=== PATIENT | female | born 1975 | race Caucasian/White ===

== ENCOUNTER 2017-10-08 08:17 | Day surgery (SDC) | END 2017-10-08 15:15 | disposition home or self-care (01) ==

== ENCOUNTER 2018-02-27 16:04 | Observation (INO) | END 2018-02-28 15:30 | disposition home or self-care (01) ==

== ENCOUNTER 2018-04-16 07:19 | Inpatient (IN) | END 2018-04-19 15:45 | disposition home or self-care (01) | DRG 627 ==

== ENCOUNTER 2018-06-13 12:40 | Emergency (ER) | END 2018-06-13 17:43 | disposition home or self-care (01) ==

== ENCOUNTER 2018-06-18 10:23 | Inpatient (IN) | END 2018-06-19 17:15 | disposition home or self-care (01) | DRG 577 ==

== ENCOUNTER 2018-08-31 11:13 | Inpatient (IN) | payer OTHER ==
[2018-08-28 16:28] VITALS: BMI 20.8
[2018-08-31] VITALS (31 sets, daily range): BP systolic 97–138; BP diastolic 53–93; PULSE 59–91; RESP 10–18; Ht 172.7 cm; Wt 62.5 kg
[~2018-08-31] VITALS: Ht 172.7 cm; Wt 62.5 kg
[~2018-08-31 11:13] MED LIST: LEVO175T6 PO; LIOT25TA3 PO
[2018-08-31] MEDS ORDERED: SOD CHLORIDE 0.9% 1,000 ML IV ONE (11:30)
[2018-08-31] MEDS ORDERED: CEFAZOLIN 2 GM/50 ML (PMX) 50 ML IVPB ONE (11:30)
[2018-08-31] MEDS ORDERED: LEVO150T64 PO (11:48)
[2018-08-31] MEDS ORDERED: PROPOFOL 20 ML ONE (12:50)
[2018-08-31] MEDS ORDERED: CEFAZOLIN 1 GM INJ ONE (12:50)
[2018-08-31] MEDS ORDERED: MIDAZOLAM 1 MG/ML 2 ML INJ ONE (12:50)
[2018-08-31] MEDS ORDERED: LIDOCAINE 2% (SDV) 5 ML INJ ONE (12:50)
[2018-08-31] MEDS ORDERED: FENTAnyl 50 MCG/ML VIAL ONE ×2 (12:50→14:05)
--- NOTE | 2018-08-31 12:56 | PREAC ---
Date/Time of Note Date/Time of Note DATE: 08/31/18 TIME: 12:55 Anesthesia Eval and Record Evaluation Time Pre-Procedure Interview DATE: 08/31/18 TIME: 12:55 Age 42 Sex female NPO: 8 hrs Preoperative diagnosis right breast cancer Planned procedure right modified radical mastectomy Past Medical History Past Medical History: Includes Cardio: Arrythmia ( PVC's ablation, EF 60%, negative stress test, cardiac clearance noted. ) Endo: Hypothyroid Pulm: Other (pre-existing hoarse voice since after thyroidectomy.) Heme: Other (breast cancer, mets to thyroid s/p thyroidectomy) Surgery & Anesthesia Issues No known issue Meds Anticoagulation: No Beta Asher within 24 hr: No Reason Beta Asher not given: Pt. not on B-Asher Reported Medications Levothyroxine Sodium* (Levoxyl*) 150 Mcg Tablet, 150 MCG PO BEFORE BREAKFAST, #30 TAB 08/31/18 Discontinued Reported Medications Liothyronine Sodium* (Cytomel*) 25 Mcg Tablet, 25 MCG PO BID, TAB 06/13/18 Levothyroxine Sodium* (Levothyroxine Sodium*) 175 Mcg Tablet, 150 MCG PO BEFORE BREAKFAST, #30 TAB 06/13/18 Current Medications Sodium Chloride 1,000 ml @ 75 mls/hr [id number] ONCE IV ; Start 08/31/18 at 11:30; Stop 09/01/18 at 00:49 Meds reviewed: Yes Allergies Coded Allergies: No Known Allergy (Unverified , 08/31/18) Allergies Reviewed: Yes Labs/Studies Labs Reviewed: Reviewed by anesthesiologist test: Negative Studies: ECG Pre-procedure Exam Last vitals Vital Signs Date Temp Pulse Resp B/P (MAP) Pulse Ox O2 O2 Flow FiO2 Time Delivery Rate 08/31/18 98.4 59 16 111/69 100 Room Air 12:24 (83) Airway: Adequate mouth opening Mallampati: Mallampati II Teeth: Normal Lung: Normal Heart: Normal ASA Physical Status ASA physical status: 2 Emergency: None Planned Anesthetic General/MAC: LMA Planned Pain Management Parenteral pain med, Local by surgeon Pre-operative Attestations Prior to commencing anesthesia and surgery, the patient was re-evaluated, there was verification of: *The patient's identity *The results of appropriate recent lab work and preoperative vital signs *The above evaluation not changing prior to induction *Anesthetic plan, risk benefits, alternative and complications discussed with patient/family; questions answered; patient/family understands, accepts and wishes to proceed. JOSE BURGESS Aug 31, 2018 12:56
[2018-08-31] MEDS ORDERED: SCOPOLAMINE 1.5 MG PATCH ONE (13:33)
[2018-08-31] MEDS ORDERED: ONDANSETRON 4 MG INJ ONE (13:52)
[2018-08-31] MEDS ORDERED: FAMOTIDINE 20 MG INJ ONE (13:52)
[2018-08-31] MEDS ORDERED: DEXAMETHASONE 4 MG/ML 5 ML INJ ONE (13:52)
[2018-08-31] MEDS ORDERED: METOCLOPRAMIDE 10 MG INJ ONE (13:52)
[2018-08-31] MEDS ORDERED: HYDROmorphONE 1 MG/5 ML IV SYRINGE IV PRN ×2 (14:30)
[2018-08-31] MEDS ORDERED: MEPERIDINE 25 MG INJ IV PRN (14:30)
[2018-08-31] MEDS ORDERED: PROCHLORPERAZINE 10 MG INJ IV PRN (14:30)
[2018-08-31] MEDS ORDERED: ONDANSETRON 4 MG INJ IV PRN ×2 (14:30→15:30)
[2018-08-31] MEDS ORDERED: OXYCODONE/ACETAMINOPHEN (5/325) TAB PO PRN ×2 (14:30)
--- NOTE | 2018-08-31 15:23 | SIPON ---
Date/Time of Note Date/Time of Note DATE: 08/31/18 TIME: 15:21 Operative Report Preoperative Diagnosis Recurrent right breast cancer with invasion of the skin and chest wall musculature Postoperative Diagnosis Same Operation/Procedure Performed Right modified radical mastectomy with resection portion of the pectoralis major and serratus anterior muscle and additional specimen of the latissimus dorsi muscle with tumor implants and posterior lateral skin Surgeon see signature line rehab care assistant Dr Prasad Anesthesia: general Estimated blood loss: 100 - 150 ml's Transfusion Required none Specimen Right breast with portion of pectoralis major muscle and axillary lymph nodes and additionally an specimen consists of a portion of right latissimus dorsi muscle third specimen of additional posterior lateral skin Grafts/Implants none Complications none SHAYY EPPERSON MD Aug 31, 2018 15:23
[2018-08-31] MEDS ORDERED: morphine 2 MG INJ IV PRN (15:30)
[2018-08-31] MEDS ORDERED: ACETAMINOPHEN 1000MG/100ML IV 100 ML IVPB PRN (15:30)
--- NOTE | 2018-08-31 15:32 | NUR ---
PACU/RN-RECEIVED PT. FROM OR VIA [facility], ACCOMPANIED BY OR STAFF AND ANESTHESIA S/P-RIGHT MODIFIED RADICAL MASTECTOMY. NOTED TO HAVE RIGHT BREAST INCISION INTACT W/ BULK DRESSING AND ADHESIVE PAPER TAPE. W/ X2 PARKER DRAIN, TO BULB SUCTION, W/ MODERATE AMOUNT OF SEROSANGUINEOUS OUTPUT. WILL CONTINUE TO MONITOR PER PROTOCOL. POST SEDATED, AROUSABLE, NO S/S OF PAIN. PT. WILL BE ADMITTED TO MEDR. FLOOR.
--- NOTE | 2018-08-31 15:39 | PAC ---
Date/Time of Note Date/Time of Note DATE: 08/31/18 TIME: 15:38 Post-Anesthesia Notes Post-Anesthesia Note Last documented vital signs BP 111/62 HR 82 spo2 100% RR 14 Temp 97.7 Vital Signs Date Temp Pulse Resp B/P (MAP) Pulse Ox O2 O2 Flow FiO2 Time Delivery Rate 08/31/18 98.4 59 16 111/69 100 Room Air 12:24 (83) Activity: WNL Respiratory function: WNL Cardiovascular function: WNL Mental status: Baseline Pain reasonably controlled: Yes Hydration appropriate: Yes Nausea/Vomiting absent: Yes JOSE BURGESS Aug 31, 2018 15:39
[2018-08-31] MEDS: HYDROmorphONE 1 MG/5 ML IV SYRINGE IV PRN ×2 (16:06→16:25)
--- NOTE | 2018-08-31 16:06 | OPR ---
DATE OF OPERATION: 08/31/2018 PREOPERATIVE DIAGNOSIS: Recurrent right breast cancer with both dermal and pectoralis major muscle i nvasion. POSTOPERATIVE DIAGNOSIS: Recurrent right breast cancer with involvement of the skin, pectoralis esperanza r muscle and portion of the serratus anterior muscle. PROCEDURES: Right modified radical mastectomy, resection of portion of latissimus dorsi muscle with tumor invasion and resection of the distal posterior medial skin, local skin flaps advancement and cl osure ANESTHESIA: General. ANESTHESIOLOGIST: Nurse high school auto repair teacher, Jeff Moody CRNA SURGEON: Oswald Quiroga MD BOAT PATCHER PLASTIC: Barron Prasad MD INDICATIONS FOR PROCEDURE: The patient is a very unfortunate 42-year-old female who presented with m etastatic breast cancer to the liver. She underwent neoadjuvant chemotherapy with an extremely good response and resolution of hepatic metastases. Subsequently, she requested attempt at breast conserv ation surgery. She had that surgery and then further workup with a PET scan identified a possible pr imary thyroid cancer, was confirmed on FNA. She underwent thyroidectomy. She then continued on her chemotherapy when she developed evidence of recurrence in her upper outer aspect of her breasts. She was told that the best treatment would be a modified radical mastectomy at that point in time; jovanny giordano she adamantly refused and underwent resection and then over the last several weeks, she pres ented with an additional recurrence of the right breast and now she has consented for a right modifie d radical mastectomy. DESCRIPTION OF PROCEDURE: The patient was brought to the operating theater, placed under general ane sthesia. The right breast and axillary region were prepped and draped in usual sterile fashion. The obvious visible and palpable tumor with dermal metastases was identified and elliptical incision was widely demarcated around including areas of the skin nodularity. The incision was carried out with 15-blade scalpel. Subcutaneous tissue was dissected with cautery and skin flaps were created in sequ ential fashion using cautery, first superiorly to the clavicle, then medially to the sternal border, inferiorly to the inframammary fold and laterally until the latissimus dorsi was identified throughou t its course. Mastectomy then took place from medial to lateral using cautery. It became obvious th at a significant amount of tumor invaded into the pectoralis major muscle and through the muscle and into the serratus anterior muscle. This tumor was resected en bloc with the specimen. Additional di ssection continued into the axilla where several large tumor nodules were identified and meticulously resected. Final connective tissue attachments were then transected and specimen was removed, carroll aguilar. Attending pathologist, Dr. Meg Wild, came into the room and Dr. Quiroga explained the orient ation to him. Upon palpating the wound cavity, there were additional tumor nodules involving portion of the pectoralis major muscle and also involving portion of the posterolateral aspect of the skin. Both these areas of tumor were resected separately and sent separately for pathologic analysis. At this point, the wound was irrigated. Residual bleeding was controlled with cautery. The skin was qu ite tight; therefore, additional superior and inferior flaps were mobilized. This was accomplished u sing cautery and skin flaps were rotated together and held in place with towel clamps and several 0 n ylon sutures were placed in vertical mattress fashion, retained them in place. Two #10-Mongolian Jackso n-Kaplan drains were brought through the midaxillary line. One was cut to size and laid over the pect oralis major. The other was cut to size and laid within the axilla. Both drains were secured in emmie ce with 2-0 nylon sutures in the standard fashion and then final skin approximation took place with s kin soren. The patient tolerated the procedure well. The total blood loss was approximately 150 m L. There were no complications and the patient was transported in stable condition to the [facility]. Dictated By: OSWALD TSAI/EVAN Conf#: [id number] DID#: [id number] CC: JESSICA VALADEZ MD;*EndCC*
--- NOTE | 2018-08-31 16:25 | NUR ---
PACU/RN- BIAS WRAP APPLIED TO ANTERIOR CHEST/ BILATERAL BREAST.
--- NOTE | 2018-08-31 17:30 | NUR ---
PACU/RN-STABLE, PHONE REPORT GIVEN TO ASHLI SORENSON.
--- NOTE | 2018-08-31 17:44 | NUR ---
PACU/RN- REMAINS STABLE, DENIES PAIN AT THIS TIME. TRANSPORTED VIA GURNEY BY DEENA JARVIS TO ROOM 408.
--- NOTE | 2018-08-31 18:10 | NUR ---
ADMIT: Patient admitted to Room 408, sleepy, drowsy, but arouses easily. Patient received pain meds in the PACU and appears very comfortable. Patient stable. Maintained comfort and safety. Will follow up with new postop orders.
--- NOTE | 2018-08-31 19:20 | NUR ---
EOSS: Patient's care endorsed to oncoming RN, Yuko Tate. Orders endorsed as well. Patient's s/o at bedside, patient denies acute pain. No complications. Patient is physiologically and hemodynamically stable, maintained comfort and safety.
[2018-08-31] MEDS: D5W-0.45 NACL + KCL 20 MEQ 1,000 ML IV SCH (20:46)
--- NOTE | 2018-09-01 02:05 | HP ---
DATE OF ADMISSION: 08/31/2018 CHIEF COMPLAINT AND HISTORY OF PRESENT ILLNESS: The patient is a 42-year-old female well known to me from previous admission back in 05/2018. The patient has a right breast cancer stage IV. The patie nt underwent a right partial mastectomy with en bloc completion axillary dissection back in05/2018. 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 The patient is being followed by Dr. Marie shah from medical oncology standpoint. The patient was seen by Dr. Quiroga for followup. The patient was diagnosed with recurrent right breast cancer with both dermal and pectoralis major muscle invasio n. The patient was brought into hospital today and underwent right modified radical mastectomy and r esection of portion of latissimus dorsi muscle with tumor invasion and resection of distal posterior medial skin, local skin flap advancement and closure. The patient had significant postoperative pain and is being admitted for further evaluation and management. The patient denies any nausea, vomitin g. No history of headache, dizziness, syncope. No history of abdominal pain. No history of leg ashlyn ma. No history of any focal weakness. REVIEW OF SYSTEMS: Other than postoperative pain, rest of the systems is unremarkable. PAST MEDICAL HISTORY: As stated above. In addition, the patient has history of diastolic dysfunctio n on echocardiogram back in 03/2018. ALLERGIES: NO KNOWN DRUG ALLERGIES. FAMILY HISTORY: Noncontributory. SOCIAL HISTORY: No smoking or alcohol. PHYSICAL EXAMINATION: GENERAL: Revealed the patient to be awake, alert, fairly oriented. VITAL SIGNS: Temperature 98.4, pulse 78, respirations 18, blood pressure 115/62, O2 saturation 95% o n room air. HEENT: No eye discharge or redness. Conjunctivae and lids are normal. Nose and ears are normal. NECK: No mass. CHEST: Fairly clear. CARDIOVASCULAR: S1, S2 normal. ABDOMEN: Soft and nontender. Bowel sounds are present. EXTREMITIES: No leg edema. NEUROLOGIC: The patient is awake, alert, fairly oriented with no gross focal deficit. LABORATORY DATA: Recent WBC 4.2, hemoglobin 10.7, platelet 149. Sodium 143, potassium 4, BUN 23, cr eatinine 0.9, glucose 143. Liver enzymes are normal. IMPRESSION: 1. Recurrent right breast cancer with both dermal and pectoralis major muscle invasion status post s urgery as described above. 2. Thyroid cancer status post total thyroidectomy. PLAN: The patient will be admitted on medical floor. The patient will be started on clear liquid di et, which will be advanced as tolerated. We will use SCD for DVT prophylaxis. The patient will be g iven Tylenol, [place] and IV morphine for pain control depending upon severity. Continue Synthroid at home. Further recommendation will depend on the patient's hospital course and recommendation from Dr Ravindra Quiroga' group. We will continue to follow from a medical standpoint due to recent leukopenia and an emia. We will do followup CBC tomorrow. We will also obtain a basic metabolic panel. Dictated By: JESSICA VALADEZ MD AB/NTS Conf#: [id number] DID#: [id number] CC: SHAYY QUIROGA MD;*EndCC*
[2018-09-01 03:18] VITALS: BP 95/52; PULSE 54; RESP 16
[2018-09-01] MEDS: D5W-0.45 NACL + KCL 20 MEQ 1,000 ML IV SCH ×2 (04:40→07:23)
--- NOTE | 2018-09-01 06:24 | NUR ---
EOSS. NO ACUTE EVENTS OVERNIGHT, VS STABLE. MEDICATED ONCE WITH MORPHINE AND TYLENOL IV FOR PAIN. 2 PARKER WAS DRAINING 60 ML AND 80 ML. VOIDING TO BSC. ALL NEEDS PROVIDED. WILL ENDORSE TO NEXT SHIFT RN,
[2018-09-01] MEDS ORDERED: LEVOTHYROXINE 150 MCG TAB PO SCH (07:00)
[2018-09-01 08:42] VITALS: BP 108/58; PULSE 55; RESP 18
--- NOTE | 2018-09-01 10:50 | NUR ---
ENDORSEMENT: REPORT GIVEN TO MELY RN FOR CONTINUITY OF CARE. PATIENT IN BATHROOM DURING BEDSIDE SHIFT REPORT. VSS. PATIENT AMBULATED IN HALLWAY. SURGICAL SITE INTACT W/ BIAS WRAP AND X2 PARKER DRAINS, DRAINS HAVE NOT YET BEEN EMPTIED THIS SHIFT. ENDORSED TO MELY.
[2018-09-01] MEDS ORDERED: ACET325T45 PO ×3 (12:51→12:56)
[2018-09-01] MEDS ORDERED: ACET500C5 PO (12:53)
--- NOTE | 2018-09-01 14:37 | PN ---
DATE: 09/01/2018 Postop day #1 status post right breast modified radical mastectomy. SUBJECTIVE: No specific complaint. Minimal pain has been controlled with Tylenol, has been out of bed, walking around and tolerating diet. OBJECTIVE: GENERAL: Awake, alert, oriented. VITAL SIGNS: Temperature maximum today is 97.9, heart rate 55, respiration 18, blood pressure 108/58, saturation 100% on room air. HEART: Regular. LUNGS: Clear. ABDOMEN: Soft. MUSCULOSKELETAL: The patient moves all the fingers on the right hand, but has limitation of full range of motion of the shoulders because of the pain. SKIN: Dressing is intact. INPUT AND OUTPUT: From time of operation yesterday to 7:00 today morning, there has been totally 190 mL drainage from 2 Derrek-Kaplan drains, one of them was 110 and the other was 80 mL at this time, which is around 2:00. On examination, the fluid in the Derrek-Kaplan drains and tubing is serosanguineous. ASSESSMENT AND PLAN: A 42-year-old patient with recurrent carcinoma of the right breast. She underwent modified radical mastectomy yesterday. She has 2 Derrek-Kaplan drains and care of Derrek-Kaplan drain was taught to the patient. The patient is to call Dr. Quiroga' office and make an appointment for followup. Pain medication, the patient states that she has been at home. The patient can be discharged home to be followed by Dr. Quiroga in the office. The patient is to record the drainage everyday and when she goes to Dr. Quiroga' office to take the sheet to the office. If any other questions or problems, she can call Dr. Quiroga' office or as needed, she can come back to emergency room. Dictated By: JUDITH LINK MD PS/NTS Conf#: [id number] DID#: [id number] CC: JESSICA VALADEZ MD; SHAYY QUIROGA MD;*EndCC* MTDD
--- NOTE | 2018-09-01 16:19 | NUR ---
RECEIVED REPORT TO Debbie templeton rn AT 1100 ; PT COMFORTABLE WITH FRIENDS AT BEDSIDE ; nO CHANGES FROM ASSESSMENT THIS am; cONTINUE pLAN OF CARE.
[2018-09-01] MEDS ORDERED: INFLUENZA VIRUS VACCINE 0.5 ML (DISPENSING) IM* ONE (19:00)
--- NOTE | 2018-09-06 22:46 | DS ---
Date/Time of Note Date/Time of Note DATE: 09/06/18 TIME: 22:44 Discharge Summary Admission/Discharge Info Admit Date/Time Aug 31, 2018 at 11:13 Discharge Date/Time Sep 01, 2018 at 15:00 Patient Condition: Stable Hx of Present Illness The patient is a 42-year-old female well known to me from previous admission back in 05/2018. The patient has a right breast cancer stage IV. The patient underwent a right partial mastectomy with en bloc completion axillary dissection back in05/2018. 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 The patient is being followed by Dr. Marroquin from medical oncology standpoint. The patient was seen by Dr. Quiroga for followup. The patient was diagnosed with recurrent right breast cancer with both dermal and pectoralis major muscle invasion. The patient was brought into hospital today and underwent right modified radical mastectomy and resection of portion of latissimus dorsi muscle with tumor invasion and resection of distal posterior medial skin, local skin flap advancement and closure. The patient had significant postoperative pain and is being admitted for further evaluation and management. The patient denies any nausea, vomiting. No history of headache, dizziness, syncope. No history of abdominal pain. No history of leg edema. No history of any focal weakness. Hospital Course 1. Recurrent right breast cancer with both dermal and pectoralis major muscle invasion status post surgery as described above. 2. Thyroid cancer status post total thyroidectomy. Home Meds Reported Medications Acetaminophen* (Tylophen*) 500 Mg Capsule, 650 MG PO Q6H PRN for PAIN LEVEL 6- 10, TAB 09/01/18 Levothyroxine Sodium* (Levoxyl*) 150 Mcg Tablet, 150 MCG PO BEFORE BREAKFAST, #30 TAB 08/31/18 Discontinued Reported Medications Acetaminophen* (Acetaminophen*) 325 Mg Tablet, 650 MG PO Q4H PRN for PAIN AND OR ELEVATED TEMP for 7 Days, #30 TAB 09/01/18 Acetaminophen* (Acetaminophen*) 325 Mg Tablet, 650 MG PO Q4H PRN for PAIN AND OR ELEVATED TEMP for 7 Days, #30 TAB 09/01/18 Acetaminophen* (Acetaminophen*) 325 Mg Tablet, 325 MG PO Q4H PRN for PAIN AND OR ELEVATED TEMP, #30 TAB 09/01/18 Liothyronine Sodium* (Cytomel*) 25 Mcg Tablet, 25 MCG PO BID, TAB 06/13/18 Levothyroxine Sodium* (Levothyroxine Sodium*) 175 Mcg Tablet, 150 MCG PO BEFORE BREAKFAST, #30 TAB 06/13/18 Follow-up Plan f/up with Dr Quiroga in 1 week. Primary Care Provider Not On Staff Doctor Time spent on discharge: > 30 minutes MALLORY LOZANO Sep 06, 2018 22:46
== END 2018-09-01 15:00 | disposition home or self-care (01) | DRG 577 ==
LOC: REC 11:13 → EDSTATUS 13:30 → MS1 18:11
PROVIDERS: ADMIT Surgery Surgical Oncology; ATTEND Surgery Surgical Oncology
PROC: 0HX5XZZ Transfer Chest Skin, External Approach (ICD-10-PCS; 2018-08-31)
PROC: 0KBH0ZZ Excision of Right Thorax Muscle, Open Approach (ICD-10-PCS; 2018-08-31)
PROC: 0HTT0ZZ Resection of Right Breast, Open Approach (ICD-10-PCS; principal; 2018-08-31 13:30)
DX: C50.911 Malignant neoplasm of unspecified site of right female breast (principal); C78.7 Secondary malignant neoplasm of liver and intrahepatic bile duct; Z85.850 Personal history of malignant neoplasm of thyroid; E89.0 Postprocedural hypothyroidism
CPT/HCPCS: 80048; 84703; 85025; 88307; 90686; J0131; J0690; J1100; J1170; J2250; J2270; J2405; J2765; J3010; J3480; J7030

== ENCOUNTER 2018-11-07 17:15 | Inpatient (IN) | payer OTHER ==
[~2018-11-07] VITALS: Ht 172.7 cm; Wt 62.2 kg
[~2018-11-07 17:15] MED LIST changes: +ACET500C5 PO; +LEVO150T64 PO; -LEVO175T6 PO; -LIOT25TA3 PO
[2018-11-07] MEDS ORDERED: ONDANSETRON 4 MG INJ IV STA (18:44)
[2018-11-07] MEDS ORDERED: LACTATED RINGER'S 1,000 ML IV STA (18:44)
[2018-11-07] MEDS ORDERED: HYDROmorphONE 1 MG/ML SYG IV STA (18:44)
[2018-11-07] MEDS ORDERED: SOD CHLORIDE 0.9% 1,000 ML IV STA (18:44)
--- NOTE | 2018-11-07 19:42 | ERD ---
ER Documentation Chief Complaint Chief Complaint pt had syncopal episode at 1700, weak and chemo pt. breast ca HPI Very pleasant 42-year-old female history of breast cancer status post right mastectomy on chemotherapy who presents to the emergency room with generalized weakness. Since she started her new chemotherapy agent the patient has had significant amounts of diarrhea over the last several days to the point where she cannot keep up with fluids. She is feeling generally weak. The patient has had 2 episodes of near syncope versus syncope secondary to standing quickly. Patient denied any prodrome of chest pain or shortness of breath, no pleuritic pain. She denies any headache. She does note some abdominal bloating and abdominal pain and discomfort that is 3 out of 10 and cramping. ROS All systems reviewed and are negative except as per history of present illness. Medications Home Meds Reported Medications Acetaminophen* (Tylophen*) 500 Mg Capsule, 650 MG PO Q6H PRN for PAIN LEVEL 6- 10, TAB 09/01/18 Levothyroxine Sodium* (Levoxyl*) 150 Mcg Tablet, 150 MCG PO BEFORE BREAKFAST, #30 TAB 08/31/18 Allergies Allergies: Coded Allergies: No Known Allergy (Unverified , 11/07/18) PMhx/Soc History of Surgery: Yes (r. lumpectomy x2, r. thyroidectomy) Anesthesia Reaction: No Hx Neurological Disorder: No Hx Respiratory Disorders: No Hx Cardiac Disorders: Yes (afib/pvc's, ablation) Hx Psychiatric Problems: No Hx Miscellaneous Medical Probl: Yes (breast ca, right with mets to thyroid,chemo 07/29/18) Hx Alcohol Use: No Hx Substance Use: No Hx Tobacco Use: No Smoking Status: Never smoker FmHx Family History: No diabetes Physical Exam Vitals Vital Signs Date Temp Pulse Resp B/P (MAP) Pulse Ox O2 O2 Flow FiO2 Time Delivery Rate 11/07/18 98.1 71 18 97/66 (76) 99 Room Air 21:54 11/07/18 98.1 57 18 101/73 100 Room Air 19:23 (82) 11/07/18 98.1 72 18 96/65 (75) 100 17:26 Physical Exam General: Cachectic Head: Normocephalic atraumatic Eyes: Pupils equally reactive, EOM intact ENT: Dry mucous membranes Neck: Supple, no lymphadenopathy Respiratory: Lungs clear bilaterally, no distress Cardiovascular: RRR, no murmurs, rubs, or gallops Abdominal: Soft, slightly protuberant mild generalized tenderness without rebound or guarding : Deferred MSK: No edema, no unilateral swelling, 5/5 strength Neurologic: Alert and oriented, moving all extremities, normal speech, no focal weakness, no cerebellar signs Skin: No rash Psych: Normal mood Result Diagram: 11/07/18185811/07/181858 Results 24 hrs Laboratory Tests Test 11/07/18 18:59 11/07/18 19:10 White Blood Count 4.6 10^3/ul Red Blood Count 4.01 10^6/ul Hemoglobin 12.8 g/dl Hematocrit 36.7 % Mean Corpuscular Volume 91.5 fl Mean Corpuscular Hemoglobin 31.9 pg Mean Corpuscular Hemoglobin Concent 34.9 g/dl Red Cell Distribution Width 16.5 % Platelet Count 202 10^3/UL Mean Platelet Volume 8.8 fl Immature Granulocytes % 0.200 % Neutrophils % 39.5 % Lymphocytes % 47.2 % Monocytes % 11.6 % Eosinophils % 1.3 % Basophils % 0.2 % Nucleated Red Blood Cells % 0.0 /100WBC Immature Granulocytes # 0.010 10^3/ul Neutrophils # 1.8 10^3/ul Lymphocytes # 2.2 10^3/ul Monocytes # 0.5 10^3/ul Eosinophils # 0.1 10^3/ul Basophils # 0.0 10^3/ul Nucleated Red Blood Cells # 0.0 10^3/ul Sodium Level 141 mmol/L Potassium Level 2.8 mmol/L Chloride Level 107 mmol/L Carbon Dioxide Level 22 mmol/L Anion Gap 12 Blood Urea Nitrogen 12 mg/dl Creatinine 0.82 mg/dl Est Glomerular Filtrat Rate mL/min > 60 mL/min Glucose Level 97 mg/dl Calcium Level 10.0 mg/dl Total Bilirubin 1.2 mg/dl Direct Bilirubin 0.00 mg/dl Indirect Bilirubin 1.2 mg/dl Aspartate Amino Transf (AST/SGOT) 22 IU/L Alanine Aminotransferase (ALT/SGPT) 15 IU/L Alkaline Phosphatase 91 IU/L Troponin I < 0.012 ng/ml Total Protein 7.3 g/dl Albumin 4.6 g/dl Globulin 2.70 g/dl Albumin/Globulin Ratio 1.70 Lipase 128 U/L Serum HCG, Qualitative NEGATIVE Urine Color YELLOW Urine Clarity CLEAR Urine pH 6.0 Urine Specific [place] 1.013 Urine Ketones NEGATIVE mg/dL Urine Nitrite NEGATIVE mg/dL Urine Bilirubin NEGATIVE mg/dL Urine Urobilinogen NEGATIVE mg/dL Urine Leukocyte Esterase NEGATIVE Kassandra/ul Urine Microscopic RBC 1 /HPF Urine Microscopic WBC 2 /HPF Urine Squamous Epithelial Cells FEW /HPF Urine Bacteria FEW /HPF Urine Hemoglobin 1+ mg/dL Urine Glucose NEGATIVE mg/dL Urine Total Protein NEGATIVE mg/dl Current Medications Medications Dose Sig/Bisi Start Time Status Last (Trade) Ordered Route PRN Stop Time Admin Dose Reason Admin Sodium 1,000 ml @ Q1H STAT 11/07/18 DC 11/07/18 Chloride 1,000 mls/hr IV 18:44 19:10 11/07/18 19:43 Lactated 1,000 ml @ Q1H STAT 11/07/18 DC 11/07/18 Ringer's 1,000 mls/hr IV 18:44 20:25 11/07/18 19:43 0.5 mg ONCE STAT 11/07/18 DC 11/07/18 Hydromorphone IV 18:44 19:11 HCl 11/07/18 18:46 (Dilaudid) Ondansetron 4 mg ONCE STAT 11/07/18 DC 11/07/18 HCl (Zofran IV 18:44 19:10 Inj) 11/07/18 18:46 Potassium 50 ml @ 50 Q1H IVPB 11/07/18 11/07/18 Chloride mls/hr 20:00 21:16 11/07/18 22:59 Ondansetron 4 mg ER BRIDGE 11/07/18 DC HCl (Zofran PRN IV 21:30 Inj) NAUSEA/VOMITI 11/07/18 21:49 NG 650 mg ER BRIDGE 11/07/18 DC Acetaminophen PRN PO 21:30 (Tylenol .MILD PAIN 11/07/18 21:49 Tab) 1-3 OR TEMP Sodium 1,000 ml @ Q8H IV 11/07/18 Chloride 125 mls/hr 21:45 IV Flush 3 ml PER 11/07/18 (NS 3 ml) PROTOCOL IV 22:00 Ondansetron 4 mg Q6H PRN 11/07/18 HCl (Zofran IV 22:00 Inj) NAUSEA/VOMITI NG 650 mg Q6H PRN 11/07/18 Acetaminophen PO .PAIN 1-3 22:00 (Tylenol OR TEMP Tab) Morphine 2 mg Q4H PRN 11/07/18 Sulfate IV .SEVERE 22:00 (morphine) PAIN 7-10 Famotidine 20 mg Q12 IV 11/08/18 (Pepcid Iv) 09:00 Enoxaparin 30 mg DAILY SC 11/08/18 Sodium 09:00 (Lovenox) Procedures/MDM EKG, MONITORS, & DIAGNOSTIC IMAGING: EKG: I reviewed and interpreted a 12-lead EKG. Rhythm: Normal sinus rhythm ST Changes: No contiguous ST segment elevations T waves: No contiguous T wave inversions Impression: [No evidence of acute cardiac ischemia] CT a/p IMPRESSION: Evaluation of the abdominal viscera is limited without intravenous contrast. 1. No acute abdominal pathology. 2. Status post right mastectomy. Further findings as detailed above. RPTAT: [facility] INTERPRETATION: I reviewed the laboratory testing and it shows hypokalemia MEDICAL DECISION MAKING: The patient has clinical signs and symptoms consistent with dehydration likely secondary to diarrhea. This is a known adverse reaction secondary to her chemotherapy agent. Patient is having some mild abdominal discomfort ER COURSE: * Potassium is low, repletion given via IV * Given the patient's history, severe diarrhea, dehydration and low potassium I would recommend observation admission. Patient is agreeable. She is tolerating oral intake at this time which is an improvement. CONSULTATION: [None] DISPOSITION PLAN: Accepting care team and consultations: I discussed the current laboratory data, diagnostic imaging and emergency care provided. Admitting team: Dr. Cruz Admitting team indication: Insurance directed Departure Diagnosis: Primary Impression: Syncope Syncope type: unspecified Qualified Codes: R55 - Syncope and collapse Additional Impressions: History of breast cancer Diarrhea Diarrhea type: unspecified type Qualified Codes: R19.7 - Diarrhea, unspecified Dehydration Hypokalemia Condition: Stable DANO SHIN MD Nov 07, 2018 19:42
[2018-11-07] MEDS: POTASSIUM CHLORIDE 50 ML IVPB SCH ×3 (20:25→22:18)
[2018-11-07] MEDS ORDERED: ACETAMINOPHEN 325 MG TAB PO PRN ×2 (21:30→22:00)
[2018-11-07] MEDS ORDERED: ONDANSETRON 4 MG INJ IV PRN ×2 (21:30→22:00)
[2018-11-07] MEDS ORDERED: NACL 0.9% 3 ML SYG IV SCH (22:00)
[2018-11-07] MEDS ORDERED: morphine 2 MG INJ IV PRN (22:00)
[2018-11-07 22:46] VITALS: Ht 172.7 cm; Wt 62.2 kg
[2018-11-07 22:47] VITALS: BP 95/60; PULSE 73; RESP 18
[2018-11-07 22:57] VITALS: PULSE 60
[2018-11-08] VITALS (11 sets, daily range): BP systolic 84–97; BP diastolic 53–58; PULSE 44–62; RESP 18–20
[2018-11-08] MEDS: SOD CHLORIDE 0.9% 1,000 ML IV SCH ×4 (01:19→21:45)
[2018-11-08] MEDS ORDERED: LEVOTHYROXINE 137 MCG TAB PO SCH (06:00)
[2018-11-08] MEDS ORDERED: SOD CHLORIDE 0.9% 500 ML IV ONE (07:00)
[2018-11-08] MEDS ORDERED: POTASSIUM CHLORIDE (SR) 20 MEQ TAB PO STA ×2 (07:44→12:39)
[2018-11-08] MEDS: FAMOTIDINE 20 MG INJ IV SCH ×2 (08:32→20:19)
[2018-11-08] MEDS: LOPERAMIDE 2 MG CAP PO PRN ×2 (08:32→20:29)
[2018-11-08] MEDS: ENOXAPARIN 30 MG/0.3 ML SYG SC SCH (08:42)
[2018-11-08] MEDS ORDERED: LAPATINIB 250 MG PO SCH ×2 (09:00→13:00)
[2018-11-08] MEDS: CAPECITABINE 500 MG TAB PO SCH ×2 (09:33→20:30)
--- NOTE | 2018-11-08 12:44 | HP ---
Date/Time of Note Date/Time of Note DATE: 11/08/18 TIME: 12:41 Assessment/Plan VTE Prophylaxis Risk score (from [facility])>0 risk: 1 SCD applied (from [facility]): No SCD contraindicated: other Pharmacological prophylaxis: LMWH Lines/Catheters IV Catheter Type (from [facility]): Peripheral IV Urinary Cath still in place: No Assessment/Plan Hospital Course 1) dehydration - intravenous fluids - monitor clinically, check labs 2) breast cancer - on chemotherapy, continue for now 3) hypothyroidism - continue replacement Result Diagram: 11/08/18 0646 11/08/18 0646 Results 24hrs Laboratory Tests Test 11/07/18 18:59 11/07/18 19:10 11/08/18 06:46 White Blood Count 4.6 #L 3.7 L Red Blood Count 4.01 #L 3.31 L Hemoglobin 12.8 # 10.5 L Hematocrit 36.7 #L 30.6 L Mean Corpuscular Volume 91.5 92.4 Mean Corpuscular Hemoglobin 31.9 31.7 Mean Corpuscular Hemoglobin Concent 34.9 34.3 Red Cell Distribution Width 16.5 #H 17.0 H Platelet Count 202 # 158 # Mean Platelet Volume 8.8 8.9 Immature Granulocytes % 0.200 0.300 Neutrophils % 39.5 48.2 Lymphocytes % 47.2 39.1 Monocytes % 11.6 H 10.2 Eosinophils % 1.3 1.9 Basophils % 0.2 0.3 Nucleated Red Blood Cells % 0.0 0.0 Immature Granulocytes # 0.010 0.010 Neutrophils # 1.8 1.8 Lymphocytes # 2.2 1.5 Monocytes # 0.5 0.4 Eosinophils # 0.1 0.1 Basophils # 0.0 0.0 Nucleated Red Blood Cells # 0.0 0.0 Sodium Level 141 140 Potassium Level 2.8 *L 2.9 *L Chloride Level 107 109 Carbon Dioxide Level 22 21 Anion Gap 12 10 Blood Urea Nitrogen 12 13 Creatinine 0.82 0.75 Est Glomerular Filtrat Rate mL/min > 60 > 60 Glucose Level 97 88 Calcium Level 10.0 8.5 Total Bilirubin 1.2 0.7 Direct Bilirubin 0.00 0.00 Indirect Bilirubin 1.2 H 0.7 Aspartate Amino Transf (AST/SGOT) 22 18 Alanine Aminotransferase (ALT/SGPT) 15 16 Alkaline Phosphatase 91 68 Troponin I < 0.012 Total Protein 7.3 5.4 #L Albumin 4.6 3.3 # Globulin 2.70 2.10 Albumin/Globulin Ratio 1.70 1.57 Lipase 128 Serum HCG, Qualitative NEGATIVE Urine Color YELLOW Urine Clarity CLEAR Urine pH 6.0 Urine Specific [place] 1.013 Urine Ketones NEGATIVE Urine Nitrite NEGATIVE Urine Bilirubin NEGATIVE Urine Urobilinogen NEGATIVE Urine Leukocyte Esterase NEGATIVE Urine Microscopic RBC 1 Urine Microscopic WBC 2 Urine Squamous Epithelial Cells FEW Urine Bacteria FEW A Urine Hemoglobin 1+ H Urine Glucose NEGATIVE Urine Total Protein NEGATIVE Hemoglobin A1c 5.3 HPI/ROS Admit Date/Time Admit Date/Time Nov 07, 2018 at 21:16 Hx of Present Illness Patient with hypothyroidism and breast cancer currently on chemotherapy comes in with weakness and near syncope. She is also have multiple episodes of diarrhea which is most likely caused by the chemotherapy. Patient is admitted for intravenous fluids and monitor of her symptoms. PMH/Family/Social Past Medical History Medical History: hypothyroid Medications Current Medications Sodium Chloride 1,000 ml @ 125 mls/hr Q8H IV Last administered on 11/08/18at 07:12; Admin Dose 125 MLS/HR; Start 11/07/18 at 21:45 IV Flush (NS 3 ml) 3 ml PER PROTOCOL IV ; Start 11/07/18 at 22:00 Ondansetron HCl (Zofran Inj) 4 mg Q6H PRN IV NAUSEA/VOMITING; Start 11/07/18 at 22:00 Acetaminophen (Tylenol Tab) 650 mg Q6H PRN PO .PAIN 1-3 OR TEMP; Start 11/07/18 at 22:00 Morphine Sulfate (morphine) 2 mg Q4H PRN IV .SEVERE PAIN 7-10; Start 11/07/18 at 22:00 Famotidine (Pepcid Iv) 20 mg Q12 IV Last administered on 11/08/18at 08:32; Admin Dose 20 MG; Start 11/08/18 at 09:00 Enoxaparin Sodium (Lovenox) 30 mg DAILY SC Last administered on 11/08/18at 08:42; Admin Dose 30 MG; Start 11/08/18 at 09:00 Levothyroxine Sodium (Synthroid) 137 mcg DAILY@06 PO Last administered on 11/08/18at 07:10; Admin Dose 137 MCG; Start 11/08/18 at 06:00 Capecitabine (Xeloda) 1,500 mg BID PO Last administered on 11/08/18at 09:33; Admin Dose 1,500 MG; Start 11/08/18 at 09:00 Miscellaneous Information Patients own medicat... BID@10,16 XX ; Start 11/08/18 at 10:00 Loperamide HCl (Imodium Cap) 2 mg Q6 PRN PO DIARRHEA Last administered on 11/08/18at 08:32; Admin Dose 2 MG; Start 11/08/18 at 08:00 Non-Formulary Medication 4 ea DAILY@1300 PO ; Start 11/08/18 at 13:00 Coded Allergies: No Known Allergy (Unverified , 11/07/18) Family History Significant Family History: other Social History Smoking Status: Never smoker Exam/Review of Systems Vital Signs Vitals Vital Signs Date Temp Pulse Resp B/P (MAP) Pulse Ox O2 O2 Flow FiO2 Time Delivery Rate 11/08/18 45 12:01 11/08/18 98.6 18 97/53 (68) 94 Room Air 11:36 Intake and Output 11/07/18 11/07/18 11/08/18 1515:00 23:00 07:00 IntakeIntake Total 1800 ml BalanceBalance 1800 ml Exam Constitutional: well developed Head: normocephalic, atraumatic Neck: supple Respiratory: diminished breath sounds Cardiovascular: regular rate and rhythm Gastrointestinal: soft, non-tender Extremities: normal pulses ASHLEIGH SANDOVAL Nov 08, 2018 12:44
[2018-11-08] MEDS ORDERED: ACETAMINOPHEN 500 MG TAB PO PRN (13:00)
[2018-11-08] MEDS: ACETAMINOPHEN 325 MG TAB PO PRN (23:04)
[2018-11-09] VITALS (13 sets, daily range): BP systolic 81–96; BP diastolic 51–60; PULSE 48–83; RESP 17–18
[2018-11-09] MEDS ORDERED: SOD CHLORIDE 0.9% 250 ML IV ONE (04:00)
[2018-11-09] MEDS: LEVOTHYROXINE 150 MCG TAB PO SCH (06:27)
[2018-11-09] MEDS: SOD CHLORIDE 0.9% 1,000 ML IV SCH ×3 (06:27→21:45)
[2018-11-09] MEDS: FAMOTIDINE 20 MG INJ IV SCH (08:27)
[2018-11-09] MEDS: CAPECITABINE 500 MG TAB PO SCH (08:28)
[2018-11-09] MEDS: ENOXAPARIN 30 MG/0.3 ML SYG SC SCH (08:29)
[2018-11-09] MEDS: LOPERAMIDE 2 MG CAP PO PRN ×2 (09:57→20:22)
[2018-11-09] MEDS ORDERED: LAPATINIB 250 MG PO SCH (13:00)
--- NOTE | 2018-11-09 13:17 | PN ---
Date/Time of Note Date/Time of Note DATE: 11/09/18 TIME: 13:16 Assessment/Plan VTE Prophylaxis Risk score (from [facility])>0 risk: 2 SCD applied (from [facility]): No SCD contraindicated: other Pharmacological prophylaxis: LMWH Lines/Catheters IV Catheter Type (from [facility]): Peripheral IV Urinary Cath still in place: No Assessment/Plan Hospital Course 1) dehydration - intravenous fluids - monitor clinically, check labs 2) breast cancer - on chemotherapy, continue for now 3) hypothyroidism - continue replacement Result Diagram: 11/09/18 0822 11/09/18 0822 Results 24hrs Laboratory Tests Test 11/09/18 08:22 White Blood Count 3.2 L Red Blood Count 3.16 L Hemoglobin 10.1 L Hematocrit 29.7 L Mean Corpuscular Volume 94.0 Mean Corpuscular Hemoglobin 32.0 Mean Corpuscular Hemoglobin Concent 34.0 Red Cell Distribution Width 17.1 H Platelet Count 163 Mean Platelet Volume 8.9 Immature Granulocytes % 0.300 Neutrophils % 49.0 Lymphocytes % 34.6 Monocytes % 13.6 H Eosinophils % 1.9 Basophils % 0.6 Nucleated Red Blood Cells % 0.0 Immature Granulocytes # 0.010 Neutrophils # 1.6 Lymphocytes # 1.1 Monocytes # 0.4 Eosinophils # 0.1 Basophils # 0.0 Nucleated Red Blood Cells # 0.0 Sodium Level 142 Potassium Level 3.4 L Chloride Level 115 H Carbon Dioxide Level 21 Anion Gap 6 Blood Urea Nitrogen 7 Creatinine 0.77 Est Glomerular Filtrat Rate mL/min > 60 Glucose Level 86 Calcium Level 8.9 Subjective 24 Hr Interval Summary Free Text/Dictation Patient continues to have severe diarrhea and feeling weak Exam/Review of Systems Exam Vitals Vital Signs Date Temp Pulse Resp B/P (MAP) Pulse Ox O2 O2 Flow FiO2 Time Delivery Rate 11/09/18 97.6 53 18 96/59 (71) 100 12:03 11/08/18 Room Air 16:11 Intake and Output 11/08/18 11/08/18 11/09/18 1515:00 23:00 07:00 IntakeIntake Total 1000 ml 1000 ml 2200 ml BalanceBalance 1000 ml 1000 ml 2200 ml Constitutional: well developed, frail Head: normocephalic, atraumatic Neck: supple Respiratory: diminished breath sounds Cardiovascular: regular rate and rhythm Gastrointestinal: soft, non-tender Extremities: normal pulses Results Results 24hrs Laboratory Tests Test 11/09/18 08:22 White Blood Count 3.2 L Red Blood Count 3.16 L Hemoglobin 10.1 L Hematocrit 29.7 L Mean Corpuscular Volume 94.0 Mean Corpuscular Hemoglobin 32.0 Mean Corpuscular Hemoglobin Concent 34.0 Red Cell Distribution Width 17.1 H Platelet Count 163 Mean Platelet Volume 8.9 Immature Granulocytes % 0.300 Neutrophils % 49.0 Lymphocytes % 34.6 Monocytes % 13.6 H Eosinophils % 1.9 Basophils % 0.6 Nucleated Red Blood Cells % 0.0 Immature Granulocytes # 0.010 Neutrophils # 1.6 Lymphocytes # 1.1 Monocytes # 0.4 Eosinophils # 0.1 Basophils # 0.0 Nucleated Red Blood Cells # 0.0 Sodium Level 142 Potassium Level 3.4 L Chloride Level 115 H Carbon Dioxide Level 21 Anion Gap 6 Blood Urea Nitrogen 7 Creatinine 0.77 Est Glomerular Filtrat Rate mL/min > 60 Glucose Level 86 Calcium Level 8.9 Medications Medication Current Medications Sodium Chloride 1,000 ml @ 125 mls/hr Q8H IV Last administered on 11/09/18at 06:27; Admin Dose 125 MLS/HR; Start 11/07/18 at 21:45 IV Flush (NS 3 ml) 3 ml PER PROTOCOL IV ; Start 11/07/18 at 22:00 Ondansetron HCl (Zofran Inj) 4 mg Q6H PRN IV NAUSEA/VOMITING Last administered on 11/08/18at 23:04; Admin Dose 4 MG; Start 11/07/18 at 22:00 Morphine Sulfate (morphine) 2 mg Q4H PRN IV .SEVERE PAIN 7-10; Start 11/07/18 at 22:00 Famotidine (Pepcid Iv) 20 mg Q12 IV Last administered on 11/09/18at 08:27; Admin Dose 20 MG; Start 11/08/18 at 09:00 Enoxaparin Sodium (Lovenox) 30 mg DAILY SC Last administered on 11/09/18at 08:29; Admin Dose 30 MG; Start 11/08/18 at 09:00 Capecitabine (Xeloda) 1,500 mg BID PO Last administered on 11/09/18at 08:28; Admin Dose 1,500 MG; Start 11/08/18 at 09:00 Miscellaneous Information Patients own medicat... BID@ XX ; Start 11/08/18 at 10:00 Loperamide HCl (Imodium Cap) 2 mg Q6 PRN PO DIARRHEA Last administered on 11/09/18at 09:57; Admin Dose 2 MG; Start 11/08/18 at 08:00 Levothyroxine Sodium (Synthroid) 150 mcg BEFORE BREAKFAST PO Last administered on 11/09/18at 06:27; Admin Dose 150 MCG; Start 11/09/18 at 07:00 Acetaminophen (Tylenol Tab) 650 mg Q6H PRN PO PAIN LEVEL 6-10 Last administered on 11/08/18at 23:04; Admin Dose 650 MG; Start 11/08/18 at 13:00 Non-Formulary Medication 4 dose DAILY@1300 PO ; Start 11/09/18 at 13:00 Miscellaneous Information Patients own medicat... BID@ XX ; Start 11/09/18 at 16:00 ASHLEIGH SANDOVAL Nov 09, 2018 13:17
[2018-11-09] MEDS ORDERED: HARD FAT/PHENYLEPHRINE SUPP PR SCH (14:30)
[2018-11-09] MEDS: PE/SHARK OIL/MO/PETROL 30 GM OINT PR SCH ×2 (14:30→21:00)
[2018-11-09] MEDS: FAMOTIDINE 20 MG TAB PO SCH (20:22)
[2018-11-10] VITALS (12 sets, daily range): BP systolic 88–97; BP diastolic 50–65; PULSE 52–72; RESP 17–18
[2018-11-10] MEDS: SOD CHLORIDE 0.9% 1,000 ML IV SCH ×2 (00:15→13:22)
[2018-11-10] MEDS: LEVOTHYROXINE 150 MCG TAB PO SCH (06:04)
--- NOTE | 2018-11-10 06:51 | PQ ---
Date/Time of Note Date/Time of Note DATE: 11/10/18 TIME: 06:[address] Cruz , A review of the medical record found a need for documentation clarification. patient admitted with diarrhea and has breast cancer for which she is on chemotherapy. patient's BMI 20.8. patient described in ED record as Cachectic. patient per RD notes has poor PO intake and is high risk. Please specify a diagnosis related to patient's nutrition status. Thank you Please clarify a diagnosis being treated. To facilitate accurate and complete coding, please lenard ( x ) the suspected diagnosis that apply: ( ) Severe protein calorie malnutrition ( ) Moderate protein calorie malnutrition ( ) Mild protein calorie malnutrition ( ) Other Please provide your response by clicking edit document,make your choice (x ) , click ok/save and finally click sign. You may alsodocument your responseinyour progress notes. Thank you for your time. Jaguar SERRANO,CCS,CCDS Clinical Battery Inspector Health Information Management, CDI and Coding Services Room # [id number] - [address] [id number] AJGUAR AMARO Nov 10, 2018 06:51
[2018-11-10] MEDS: PE/SHARK OIL/MO/PETROL 30 GM OINT PR SCH ×2 (09:00→20:57)
[2018-11-10] MEDS: FAMOTIDINE 20 MG TAB PO SCH ×2 (09:21→20:56)
[2018-11-10] MEDS: ENOXAPARIN 30 MG/0.3 ML SYG SC SCH (09:29)
[2018-11-10] MEDS ORDERED: POTASSIUM CHLORIDE (SR) 20 MEQ TAB PO STA (11:55)
[2018-11-10] MEDS: LOPERAMIDE 2 MG CAP PO PRN ×2 (13:18→19:58)
--- NOTE | 2018-11-10 14:30 | CONS ---
DATE OF ADMISSION: 11/08/2018 DATE OF CONSULTATION: 11/10/2018 TYPE OF CONSULTATION: Hematology-oncology. REASON FOR EVALUATION: Breast cancer. 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 The patient go t 6 cycles of PTCH Perjeta, Taxotere, carboplatin per protocol with complete response. Surgery was d one in mid 2017 which showed no evidence of disease. Unfortunately, few months later, local disease recurred, mainly in the right axillary area with the surgery and another recurrence in early 2018. M astectomy was done in complete debulking surgery. Latest scans between 08/2018 and 09/2018 show loca lly tumors in the pectoralis area, chest wall areas and one lesion in the basal ganglia. The patient was started on Tykerb and Xeloda per protocol for anti-HER-2 breast cancer in addition to supposed t o get radiation. She comes to [facility] because of severe diarrhea, weakness, fat igue, nausea, electrolyte imbalance, diarrhea between 8 to 10 times; currently better, on IV fluids, electrolytes, antibiotics and Imodium has been helping in addition to stopping the anticancer medica tions. PAST MEDICAL HISTORY: Negative other than allergy and breast cancer HER-2 amplified. FAMILY HISTORY: Positive for cancer. Mother had breast cancer and uterine cancer. Grandfather had prostate cancer. SOCIAL HISTORY: Social smoker, drinker. , no children. PHYSICAL EXAMINATION: VITAL SIGNS: Temperature 97, respirations 18, pulse of 88, BP 110/70 improved from admission of 70/5 0. SKIN: Mildly pale. No jaundice. NECK: No supraclavicular nodes. No axillary nodes. LUNGS: Clear. HEART: Normal S1, S2. BREASTS: Right breast mastectomy. Operative wound. ABDOMEN: Soft. LABORATORY DATA: Per EMR. ASSESSMENT AND PLAN: A 42-year-old female with HER-2 amplified recurrent breast cancer, post-surgery and adjuvant chemotherapy. Unfortunately, recurrent disease mainly in the chest wall recurred and n odes on Tykerb, Xeloda per protocol. PLAN: 1. Stop all medications for now as diarrhea is most likely from Xeloda, capecitabine and Tykerb on h old and radiation for now. 2. Fluid, electrolyte balance. 3. Blood culture, urine culture, stool cultures, IV antibiotic per protocol, electrolytes of sodium, potassium, magnesium balance and supplements. 4. Antidiarrheal medication and antiemetics. Dictated By: CATIA KIRAN/EVAN Conf#: [id number] DID#: [id number] CC: ASHLEIGH SANDOVAL MD;*EndCC*
[2018-11-10] MEDS: D5W-0.45 NACL + KCL 20 MEQ 1,000 ML IV SCH (17:58)
--- NOTE | 2018-11-10 18:40 | PN ---
Date/Time of Note Date/Time of Note DATE: 11/10/18 TIME: 18:39 Assessment/Plan VTE Prophylaxis Risk score (from [facility])>0 risk: 3 SCD applied (from [facility]): No Lines/Catheters IV Catheter Type (from [facility]): Peripheral IV Urinary Cath still in place: No Assessment/Plan Assessment/Plan - Hypokalemia - replace K - bmp am 1) dehydration - intravenous fluids - monitor clinically, check labs 2) breast cancer - on chemotherapy, continue for now 3) hypothyroidism - continue replacement Result Diagram: 11/09/1882111/09/18821 Exam/Review of Systems Exam Vitals Vital Signs Date Temp Pulse Resp B/P (MAP) Pulse Ox O2 O2 Flow FiO2 Time Delivery Rate 11/10/18 59 16:01 11/10/18 97.5 18 94/58 (70) 97 15:33 11/08/18 Room Air 16:11 Intake and Output 11/09/18 11/09/18 11/10/18 1515:00 23:00 07:00 IntakeIntake Total 1650 ml 625 ml BalanceBalance 1650 ml 625 ml Medications Medication Current Medications IV Flush (NS 3 ml) 3 ml PER PROTOCOL IV ; Start 11/07/18 at 22:00 Ondansetron HCl (Zofran Inj) 4 mg Q6H PRN IV NAUSEA/VOMITING Last administered on 11/08/18at 23:04; Admin Dose 4 MG; Start 11/07/18 at 22:00 Morphine Sulfate (morphine) 2 mg Q4H PRN IV .SEVERE PAIN 7-10; Start 11/07/18 at 22:00 Enoxaparin Sodium (Lovenox) 30 mg DAILY SC Last administered on 11/10/18at 09:29; Admin Dose 30 MG; Start 11/08/18 at 09:00 Capecitabine (Xeloda) 1,500 mg BID PO Last administered on 11/09/18at 08:28; Admin Dose 1,500 MG; Start 11/08/18 at 09:00; Status Hold Miscellaneous Information Patients own medicat... BID@10,16 XX ; Start 11/08/18 at 10:00 Loperamide HCl (Imodium Cap) 2 mg Q6 PRN PO DIARRHEA Last administered on 11/10/18at 13:18; Admin Dose 2 MG; Start 11/08/18 at 08:00 Levothyroxine Sodium (Synthroid) 150 mcg BEFORE BREAKFAST PO Last administered on 11/10/18 06:04; Admin Dose 150 MCG; Start 11/09/18 at 07:00 Acetaminophen (Tylenol Tab) 650 mg Q6H PRN PO PAIN LEVEL 6-10 Last administered on 11/08/18at 23:04; Admin Dose 650 MG; Start 11/08/18 at 13:00 Non-Formulary Medication 4 dose DAILY@1300 PO Last administered on 11/09/18at 14:12; Admin Dose 4 DOSE; Start 11/09/18 at 13:00; Status Hold Miscellaneous Information Patients own medicat... BID@10,16 XX ; Start 11/09/18 at 16:00 Phenyleph/Shark Oil/Min Oil/Petrol (Formulation R Oint) 1 applic BID NV ; Start 11/09/18 at 14:30 Famotidine (Pepcid) 20 mg Q12 PO Last administered on 11/10/18at 09:21; Admin Dose 20 MG; Start 11/09/18 at 21:00 Potassium Chloride/Dextrose/ Sod Cl 1,000 ml @ 75 mls/hr [id number] IV Last administered on 11/10/18at 17:58; Admin Dose 75 MLS/HR; Start 11/10/18 at 18:00 ZUHAIR HERNANDEZ Nov 10, 2018 18:40
[2018-11-11] VITALS (10 sets, daily range): BP systolic 94–103; BP diastolic 54–60; PULSE 48–72; RESP 18–20
[2018-11-11] MEDS: LEVOTHYROXINE 150 MCG TAB PO SCH (06:26)
[2018-11-11] MEDS: D5W-0.45 NACL + KCL 20 MEQ 1,000 ML IV SCH ×2 (06:27→20:36)
[2018-11-11] MEDS: PE/SHARK OIL/MO/PETROL 30 GM OINT PR SCH ×2 (09:38→20:36)
[2018-11-11] MEDS: FAMOTIDINE 20 MG TAB PO SCH ×2 (09:38→20:36)
[2018-11-11] MEDS: ENOXAPARIN 30 MG/0.3 ML SYG SC SCH (10:14)
[2018-11-11] MEDS ORDERED: POTASSIUM CHLORIDE (SR) 20 MEQ TAB PO ONE (11:00)
[2018-11-11] MEDS ORDERED: MAGNESIUM SULFATE 3 GM in DEXTROSE 5% 100 ML IVPB ONE (11:30)
--- NOTE | 2018-11-11 14:35 | CONS ---
Consult Date/Type/Reason Admit Date/Time Nov 08, 2018 at 13:40 Initial Consult Date Date/Time of Note DATE: 11/11/18 TIME: 14:32 Subjective better less diarrhea 2-3x/day from 8x/day no pain no bleeding no SOB Objective Vitals Clear lungs S1S2 SOFT abdomen Vital Signs Date Temp Pulse Resp B/P (MAP) Pulse Ox O2 O2 Flow FiO2 Time Delivery Rate 11/11/18 72 12:47 11/11/18 98.3 20 97/55 (69) 98 Room Air 11:45 Intake and Output 11/10/18 11/10/18 11/11/18 1515:00 23:00 07:00 IntakeIntake Total 400 ml 800 ml 1050 ml BalanceBalance 400 ml 800 ml 1050 ml Results/Medications Result Diagram: 11/11/18 0655 11/11/18 0655 Results 24 hrs Laboratory Tests Test 11/11/18 06:55 White Blood Count 3.7 L Red Blood Count 3.01 L Hemoglobin 9.8 L Hematocrit 28.5 L Mean Corpuscular Volume 94.7 Mean Corpuscular Hemoglobin 32.6 Mean Corpuscular Hemoglobin Concent 34.4 Red Cell Distribution Width 16.7 H Platelet Count 151 Mean Platelet Volume 9.0 Immature Granulocytes % 0.000 L Neutrophils % 39.4 Lymphocytes % 45.7 Monocytes % 12.2 H Eosinophils % 2.4 Basophils % 0.3 Nucleated Red Blood Cells % 0.0 Immature Granulocytes # 0.000 Neutrophils # 1.5 L Lymphocytes # 1.7 Monocytes # 0.5 Eosinophils # 0.1 Basophils # 0.0 Nucleated Red Blood Cells # 0.0 Sodium Level 140 Potassium Level 3.5 Chloride Level 113 H Carbon Dioxide Level 21 Anion Gap 6 Blood Urea Nitrogen 8 Creatinine 0.66 Est Glomerular Filtrat Rate mL/min > 60 Glucose Level 86 Calcium Level 9.0 Phosphorus Level 2.6 Magnesium Level 1.4 L Home Meds Reported Medications Acetaminophen* (Tylophen*) 500 Mg Capsule, 650 MG PO Q6H PRN for PAIN LEVEL 6- 10, TAB 09/01/18 Levothyroxine Sodium* (Levoxyl*) 150 Mcg Tablet, 150 MCG PO BEFORE BREAKFAST, #30 TAB 08/31/18 Medications Current Medications IV Flush (NS 3 ml) 3 ml PER PROTOCOL IV ; Start 11/07/18 at 22:00 Ondansetron HCl (Zofran Inj) 4 mg Q6H PRN IV NAUSEA/VOMITING Last administered on 11/08/18 23:04; Admin Dose 4 MG; Start 11/07/18 at 22:00 Morphine Sulfate (morphine) 2 mg Q4H PRN IV .SEVERE PAIN 7-10; Start 11/07/18 at 22:00 Enoxaparin Sodium (Lovenox) 30 mg DAILY SC Last administered on 11/11/18 10:14; Admin Dose 30 MG; Start 11/08/18 at 09:00 Capecitabine (Xeloda) 1,500 mg BID PO Last administered on 11/09/18 08:28; Admin Dose 1,500 MG; Start 11/08/18 at 09:00; Status Hold Miscellaneous Information Patients own medicat... BID@ XX ; Start 11/08/18 at 10:00 Loperamide HCl (Imodium Cap) 2 mg Q6 PRN PO DIARRHEA Last administered on 11/10/18 19:58; Admin Dose 2 MG; Start 11/08/18 at 08:00 Levothyroxine Sodium (Synthroid) 150 mcg BEFORE BREAKFAST PO Last administered on 11/11/18 06:26; Admin Dose 150 MCG; Start 11/09/18 at 07:00 Acetaminophen (Tylenol Tab) 650 mg Q6H PRN PO PAIN LEVEL 6-10 Last administered on 11/08/18 23:04; Admin Dose 650 MG; Start 11/08/18 at 13:00 Non-Formulary Medication 4 dose DAILY@1300 PO Last administered on 11/09/18 14:12; Admin Dose 4 DOSE; Start 11/09/18 at 13:00; Status Hold Miscellaneous Information Patients own medicat... 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 Unfortunately, recurrent disease mainly in the chest wall recurred and nodes on Tykerb, Xeloda per protocol. PLAN: 1. Stop all medications for now as diarrhea is most likely from Xeloda, capecitabine and Tykerb on hold and radiation for now. 2. Fluid, electrolyte balance. 3. Blood culture, urine culture, stool cultures, IV antibiotic per protocol, electrolytes of sodium, potassium, magnesium balance and supplements. 4. Antidiarrheal meds CATIA ELDER Nov 11, 2018 14:35
[2018-11-11] MEDS ORDERED: DIPHENOXYLATE/ATROPINE TAB PO PRN (15:00)
--- NOTE | 2018-11-11 19:35 | PN ---
Date/Time of Note Date/Time of Note DATE: 11/11/18 TIME: 19:34 Assessment/Plan VTE Prophylaxis Risk score (from Nsg)>0 risk: 3 SCD applied (from Nsg): Yes Lines/Catheters IV Catheter Type (from Nrsg): Peripheral IV Urinary Cath still in place: No Assessment/Plan Assessment/Plan - Hypomagnesium - replaced; am Mag level 1) dehydration - intravenous fluids - monitor clinically, check labs 2) breast cancer - on chemotherapy, continue for now 3) hypothyroidism - continue replacement Result Diagram: 11/11/1865411/11/18 0655 Results 24hrs Laboratory Tests Test 11/11/18 06:55 White Blood Count 3.7 L Red Blood Count 3.01 L Hemoglobin 9.8 L Hematocrit 28.5 L Mean Corpuscular Volume 94.7 Mean Corpuscular Hemoglobin 32.6 Mean Corpuscular Hemoglobin Concent 34.4 Red Cell Distribution Width 16.7 H Platelet Count 151 Mean Platelet Volume 9.0 Immature Granulocytes % 0.000 L Neutrophils % 39.4 Lymphocytes % 45.7 Monocytes % 12.2 H Eosinophils % 2.4 Basophils % 0.3 Nucleated Red Blood Cells % 0.0 Immature Granulocytes # 0.000 Neutrophils # 1.5 L Lymphocytes # 1.7 Monocytes # 0.5 Eosinophils # 0.1 Basophils # 0.0 Nucleated Red Blood Cells # 0.0 Sodium Level 140 Potassium Level 3.5 Chloride Level 113 H Carbon Dioxide Level 21 Anion Gap 6 Blood Urea Nitrogen 8 Creatinine 0.66 Est Glomerular Filtrat Rate mL/min > 60 Glucose Level 86 Calcium Level 9.0 Phosphorus Level 2.6 Magnesium Level 1.4 L Exam/Review of Systems Exam Vitals Vital Signs Date Temp Pulse Resp B/P (MAP) Pulse Ox O2 O2 Flow FiO2 Time Delivery Rate 11/11/18 59 16:25 11/11/18 98.6 20 97/57 (70) 99 Room Air 15:37 Intake and Output 11/10/18 11/10/18 11/11/18 1515:00 23:00 07:00 IntakeIntake Total 400 ml 800 ml 1050 ml BalanceBalance 400 ml 800 ml 1050 ml Results Results 24hrs Laboratory Tests Test 11/11/18 06:55 White Blood Count 3.7 L Red Blood Count 3.01 L Hemoglobin 9.8 L Hematocrit 28.5 L Mean Corpuscular Volume 94.7 Mean Corpuscular Hemoglobin 32.6 Mean Corpuscular Hemoglobin Concent 34.4 Red Cell Distribution Width 16.7 H Platelet Count 151 Mean Platelet Volume 9.0 Immature Granulocytes % 0.000 L Neutrophils % 39.4 Lymphocytes % 45.7 Monocytes % 12.2 H Eosinophils % 2.4 Basophils % 0.3 Nucleated Red Blood Cells % 0.0 Immature Granulocytes # 0.000 Neutrophils # 1.5 L Lymphocytes # 1.7 Monocytes # 0.5 Eosinophils # 0.1 Basophils # 0.0 Nucleated Red Blood Cells # 0.0 Sodium Level 140 Potassium Level 3.5 Chloride Level 113 H Carbon Dioxide Level 21 Anion Gap 6 Blood Urea Nitrogen 8 Creatinine 0.66 Est Glomerular Filtrat Rate mL/min > 60 Glucose Level 86 Calcium Level 9.0 Phosphorus Level 2.6 Magnesium Level 1.4 L Medications Medication Current Medications IV Flush (NS 3 ml) 3 ml PER PROTOCOL IV ; Start 11/07/18 at 22:00 Ondansetron HCl (Zofran Inj) 4 mg Q6H PRN IV NAUSEA/VOMITING Last administered on 11/08/18at 23:04; Admin Dose 4 MG; Start 11/07/18 at 22:00 Morphine Sulfate (morphine) 2 mg Q4H PRN IV .SEVERE PAIN 7-10; Start 11/07/18 at 22:00 Enoxaparin Sodium (Lovenox) 30 mg DAILY SC Last administered on 11/11/18at 10:14; Admin Dose 30 MG; Start 11/08/18 at 09:00 Capecitabine (Xeloda) 1,500 mg BID PO Last administered on 11/09/18at 08:28; Admin Dose 1,500 MG; Start 11/08/18 at 09:00; Status Hold Miscellaneous Information Patients own medicat... BID@10,16 XX ; Start 11/08/18 at 10:00 Levothyroxine Sodium (Synthroid) 150 mcg BEFORE BREAKFAST PO Last administered on 11/11/18at 06:26; Admin Dose 150 MCG; Start 11/09/18 at 07:00 Acetaminophen (Tylenol Tab) 650 mg Q6H PRN PO PAIN LEVEL 6-10 Last administered on 11/08/18at 23:04; Admin Dose 650 MG; Start 11/08/18 at 13:00 Non-Formulary Medication 4 dose DAILY@1300 PO Last administered on 11/09/18at 14:12; Admin Dose 4 DOSE; Start 11/09/18 at 13:00; Status Hold Miscellaneous Information Patients own medicat... BID@10,16 XX ; Start 11/09/18 at 16:00 Phenyleph/Shark Oil/Min Oil/Petrol (Formulation R Oint) 1 applic BID [place] Last administered on 11/11/18at 09:38; Admin Dose 1 APPLIC; Start 11/09/18 at 14:30 Famotidine (Pepcid) 20 mg Q12 PO Last administered on 11/11/18at 09:38; Admin Dose 20 MG; Start 11/09/18 at 21:00 Potassium Chloride/Dextrose/ Sod Cl 1,000 ml @ 75 mls/hr [id number] IV Last ad ministered on 11/11/18at 06:27; Admin Dose 75 MLS/HR; Start 11/10/18 at 18:00 Diphenoxylate HCl/ Atropine (Lomotil) 1 tab Q6H PRN PO DIARRHEA; Start 11/11/18 at 15:00 ZUHAIR HERNANDEZ Nov 11, 2018 19:35
[2018-11-12 00:01] VITALS: BP 98/57; PULSE 57; RESP 18
[2018-11-12] MEDS: D5W-0.45 NACL + KCL 20 MEQ 1,000 ML IV SCH ×2 (02:16→16:07)
[2018-11-12 03:09] VITALS: BP 104/65; PULSE 57; RESP 16
[2018-11-12] MEDS: LEVOTHYROXINE 150 MCG TAB PO SCH (07:42)
[2018-11-12 08:38] VITALS: BP 91/55; PULSE 56; RESP 16
[2018-11-12] MEDS: FAMOTIDINE 20 MG TAB PO SCH ×2 (09:50→22:17)
[2018-11-12] MEDS: PE/SHARK OIL/MO/PETROL 30 GM OINT PR SCH ×2 (09:51→22:19)
[2018-11-12] MEDS: ENOXAPARIN 30 MG/0.3 ML SYG SC SCH (09:52)
--- NOTE | 2018-11-12 15:05 | PN ---
Date/Time of Note Date/Time of Note DATE: 11/12/18 TIME: 15:05 Assessment/Plan VTE Prophylaxis Risk score (from Ns)>0 risk: 5 SCD applied (from Ns): No Lines/Catheters IV Catheter Type (from Nrs): abigail cath Urinary Cath still in place: No Assessment/Plan Assessment/Plan - Hypomagnesium 1) dehydration - intravenous fluids - monitor clinically, check labs 2) breast cancer - on chemotherapy, continue for now 3) hypothyroidism - continue replacement Result Diagram: 11/12/180 11/12/18 0430 Results 24hrs Laboratory Tests Test 11/12/18 04:30 White Blood Count 3.7 L Red Blood Count 3.10 L Hemoglobin 10.0 L Hematocrit 28.8 L Mean Corpuscular Volume 92.9 Mean Corpuscular Hemoglobin 32.3 Mean Corpuscular Hemoglobin Concent 34.7 Red Cell Distribution Width 17.2 H Platelet Count 167 Mean Platelet Volume 9.1 Immature Granulocytes % 0.300 Neutrophils % 35.7 L Lymphocytes % 51.9 H Monocytes % 9.4 Eosinophils % 2.4 Basophils % 0.3 Nucleated Red Blood Cells % 0.0 Immature Granulocytes # 0.010 Neutrophils # 1.3 L Lymphocytes # 1.9 Monocytes # 0.4 Eosinophils # 0.1 Basophils # 0.0 Nucleated Red Blood Cells # 0.0 Prothrombin Time 12.9 Prothrombin Time Ratio 1.0 INR International Normalized Ratio 0.96 Sodium Level 142 Potassium Level 3.7 Chloride Level 112 H Carbon Dioxide Level 24 Anion Gap 6 Blood Urea Nitrogen 8 Creatinine 0.62 Est Glomerular Filtrat Rate mL/min > 60 Glucose Level 92 Calcium Level 9.1 Magnesium Level 2.0 Exam/Review of Systems Exam Vitals Vital Signs Date Temp Pulse Resp B/P (MAP) Pulse Ox O2 O2 Flow FiO2 Time Delivery Rate 11/12/18 98.3 56 16 91/55 (67) 99 Room Air 08:38 Intake and Output 11/11/18 11/11/18 11/12/18 1515:00 23:00 07:00 IntakeIntake Total 106 ml 1400 ml 335 ml OutputOutput Total 1400 ml BalanceBalance 106 ml 0 ml 335 ml Results Results 24hrs Laboratory Tests Test 11/12/18 04:30 White Blood Count 3.7 L Red Blood Count 3.10 L Hemoglobin 10.0 L Hematocrit 28.8 L Mean Corpuscular Volume 92.9 Mean Corpuscular Hemoglobin 32.3 Mean Corpuscular Hemoglobin Concent 34.7 Red Cell Distribution Width 17.2 H Platelet Count 167 Mean Platelet Volume 9.1 Immature Granulocytes % 0.300 Neutrophils % 35.7 L Lymphocytes % 51.9 H Monocytes % 9.4 Eosinophils % 2.4 Basophils % 0.3 Nucleated Red Blood Cells % 0.0 Immature Granulocytes # 0.010 Neutrophils # 1.3 L Lymphocytes # 1.9 Monocytes # 0.4 Eosinophils # 0.1 Basophils # 0.0 Nucleated Red Blood Cells # 0.0 Prothrombin Time 12.9 Prothrombin Time Ratio 1.0 INR International Normalized Ratio 0.96 Sodium Level 142 Potassium Level 3.7 Chloride Level 112 H Carbon Dioxide Level 24 Anion Gap 6 Blood Urea Nitrogen 8 Creatinine 0.62 Est Glomerular Filtrat Rate mL/min > 60 Glucose Level 92 Calcium Level 9.1 Magnesium Level 2.0 Medications Medication Current Medications IV Flush (NS 3 ml) 3 ml PER PROTOCOL IV ; Start 11/07/18 at 22:00 Ondansetron HCl (Zofran Inj) 4 mg Q6H PRN IV NAUSEA/VOMITING Last administered on 11/08/18at 23:04; Admin Dose 4 MG; Start 11/07/18 at 22:00 Morphine Sulfate (morphine) 2 mg Q4H PRN IV .SEVERE PAIN 7-10; Start 11/07/18 at 22:00 Enoxaparin Sodium (Lovenox) 30 mg DAILY SC Last administered on 11/12/18at 09:52; Admin Dose 30 MG; Start 11/08/18 at 09:00 Miscellaneous Information Patients own medicat... BID@ XX ; Start 11/08/18 at 10:00 Levothyroxine Sodium (Synthroid) 150 mcg BEFORE BREAKFAST PO Last administered on 11/12/18at 07:42; Admin Dose 150 MCG; Start 11/09/18 at 07:00 Acetaminophen (Tylenol Tab) 650 mg Q6H PRN PO PAIN LEVEL 6-10 Last administered on 11/08/18at 23:04; Admin Dose 650 MG; Start 11/08/18 at 13:00 Miscellaneous Information Patients own medicat... BID@ XX ; Start 11/09/18 at 16:00 Phenyleph/Shark Oil/Min Oil/Petrol (Formulation R Oint) 1 applic BID [place] Last administered on 11/12/18 09:51; Admin Dose 1 APPLIC; Start 11/09/18 at 14:30 Famotidine (Pepcid) 20 mg Q12 PO Last administered on 11/12/18 09:50; Admin Dose 20 MG; Start 11/09/18 at 21:00 Potassium Chloride/Dextrose/ Sod Cl 1,000 ml @ 75 mls/hr [id number] IV Last administered on 11/12/18 02:16; Admin Dose 75 MLS/HR; Start 11/10/18 at 18:00 Diphenoxylate HCl/ Atropine (Lomotil) 1 tab Q6H PRN PO DIARRHEA Last administe red on 11/11/18at 22:24; Admin Dose 1 TAB; Start 11/11/18 at 15:00 ZUHAIR HERNANDEZ Nov 12, 2018 15:05
[2018-11-12 16:04] VITALS: BP 110/56; PULSE 72; RESP 20
[2018-11-12 19:30] VITALS: BP 102/59; PULSE 69; RESP 20
[2018-11-13 02:15] VITALS: BP 101/59; PULSE 63; RESP 20
[2018-11-13] MEDS: ACETAMINOPHEN 325 MG TAB PO PRN ×2 (03:16→16:06)
[2018-11-13] MEDS: D5W-0.45 NACL + KCL 20 MEQ 1,000 ML IV SCH ×2 (05:55→20:17)
[2018-11-13] MEDS: LEVOTHYROXINE 150 MCG TAB PO SCH (06:34)
[2018-11-13 07:32] VITALS: BP 100/57; PULSE 78; RESP 19
--- NOTE | 2018-11-13 08:51 | CONS ---
Consult Date/Type/Reason Admit Date/Time Nov 08, 2018 at 13:40 Initial Consult Date Date/Time of Note DATE: 11/13/18 TIME: 08:50 Subjective better less diarrhea no bleeding no pain Objective Vitals S1S2 Clear lungs soft abdomen Vital Signs Date Temp Pulse Resp B/P (MAP) Pulse Ox O2 O2 Flow FiO2 Time Delivery Rate 11/13/18 99.4 78 19 100/57 98 07:32 (71) 11/13/18 Room Air 02:15 Intake and Output 11/12/18 11/12/18 11/13/18 1414:59 22:59 06:59 IntakeIntake Total 440 ml 1425 ml 775 ml OutputOutput Total 1 ml 1 ml BalanceBalance 439 ml 1424 ml 775 ml Results/Medications Result Diagram: 11/13/18 0423 11/13/18 0423 Results 24 hrs Laboratory Tests Test 11/13/18 04:23 White Blood Count 2.9 #L Red Blood Count 3.26 L Hemoglobin 10.4 L Hematocrit 30.3 L Mean Corpuscular Volume 92.9 Mean Corpuscular Hemoglobin 31.9 Mean Corpuscular Hemoglobin Concent 34.3 Red Cell Distribution Width 17.0 H Platelet Count 170 Mean Platelet Volume 9.3 Immature Granulocytes % 0.300 Neutrophils % 47.3 Lymphocytes % 36.0 Monocytes % 13.4 H Eosinophils % 2.7 Basophils % 0.3 Nucleated Red Blood Cells % 0.0 Immature Granulocytes # 0.010 Neutrophils # 1.4 L Lymphocytes # 1.1 Monocytes # 0.4 Eosinophils # 0.1 Basophils # 0.0 Nucleated Red Blood Cells # 0.0 Sodium Level 140 Potassium Level 4.2 Chloride Level 105 Carbon Dioxide Level 26 Anion Gap 9 Blood Urea Nitrogen 11 Creatinine 0.75 Est Glomerular Filtrat Rate mL/min > 60 Glucose Level 98 Calcium Level 9.0 Home Meds Reported Medications Acetaminophen* (Tylophen*) 500 Mg Capsule, 650 MG PO Q6H PRN for PAIN LEVEL 6- 10, TAB 09/01/18 Levothyroxine Sodium* (Levoxyl*) 150 Mcg Tablet, 150 MCG PO BEFORE BREAKFAST, #30 TAB 08/31/18 Medications Current Medications IV Flush (NS 3 ml) 3 ml PER PROTOCOL IV ; Start 11/07/18 at 22:00 Ondansetron HCl (Zofran Inj) 4 mg Q6H PRN IV NAUSEA/VOMITING Last administered on 11/08/18 23:04; Admin Dose 4 MG; Start 11/07/18 at 22:00 Morphine Sulfate (morphine) 2 mg Q4H PRN IV .SEVERE PAIN 7-10; Start 11/07/18 at 22:00 Enoxaparin Sodium (Lovenox) 30 mg DAILY SC Last administered on 11/12/18 09:52; Admin Dose 30 MG; Start 11/08/18 at 09:00 Miscellaneous Information Patients own medicat... BID@10,16 XX ; Start 11/08/18 at 10:00 Levothyroxine Sodium (Synthroid) 150 mcg BEFORE BREAKFAST PO Last administered on 11/13/18 06:34; Admin Dose 150 MCG; Start 11/09/18 at 07:00 Acetaminophen (Tylenol Tab) 650 mg Q6H PRN PO PAIN LEVEL 6-10 Last administered on 11/13/18 03:16; Admin Dose 650 MG; Start 11/08/18 at 13:00 Miscellaneous Information Patients own medicat... BID@,16 XX ; Start 11/09/18 at 16:00 Phenyleph/Shark Oil/Min Oil/Petrol (Formulation R Oint) 1 applic BID [place] Last administered on 11/12/18 22:19; Admin Dose 1 APPLIC; Start 11/09/18 at 14:30 Famotidine (Pepcid) 20 mg Q12 PO Last administered on 11/12/18 22:17; Admin Dose 20 MG; Start 11/09/18 at 21:00 Potassium Chloride/Dextrose/ Sod Cl 1,000 ml @ 75 mls/hr [id number] IV Last administered on 11/13/18 05:55; Admin Dose 75 MLS/HR; Start 11/10/18 at 18:00 Diphenoxylate HCl/ Atropine (Lomotil) 1 tab Q6H PRN PO DIARRHEA Last administered on 11/11/18 22:24; Admin Dose 1 TAB; Start 11/11/18 at 15:00 Assessment/Plan Hospital Course (Demo Recall) ASSESSMENT AND PLAN: A 42-year-old female with 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 Unfortunately, recurrent disease mainly in the chest wall recurred and nodes on Tykerb, Xeloda per protocol. PLAN: 1. Stop all medications for now as diarrhea is most likely from Xeloda, capecitabine and Tykerb on hold and radiation for now. 2. Fluid, electrolyte balance. 3. Blood culture, urine culture, stool cultures, IV antibiotic per protocol, electrolytes of sodium, potassium, magnesium balance and supplements. 4. Antidiarrheal meds 5. Likely home today CATIA ELDER Nov 13, 2018 08:51
[2018-11-13] MEDS: FAMOTIDINE 20 MG TAB PO SCH ×2 (09:07→20:16)
[2018-11-13] MEDS: PE/SHARK OIL/MO/PETROL 30 GM OINT PR SCH ×2 (09:07→20:19)
[2018-11-13] MEDS: ENOXAPARIN 30 MG/0.3 ML SYG SC SCH (09:23)
--- NOTE | 2018-11-13 12:52 | PDOCDIS ---
Discharge Instructions CONDITION [id number] Patient Condition: [id number] Stable HOME CARE INSTRUCTIONS: [id number] Diet Instructions: [id number] ACTIVITY: [id number] Activity Restrictions: [id number] No Restrictions Slowly Increase Activity Rest between Activity Avoid heavy lifting Do not Drive Do not operate Machinery Do not operate Power Tool Avoid Heavy Housework [id number] Bathing Restrictions: [id number] Sponge Bath FOLLOW UP/APPOINTMENTS Follow-up Plan fu with Primary x1 week fu with Oncologist as recommended call 911 or got to the nearest hosp if symptoms get worse. Patient verbalized understanding dc instructions ZUHAIR Jaime Nov 13, 2018 12:52
--- NOTE | 2018-11-13 13:02 | PN ---
Date/Time of Note Date/Time of Note DATE: 11/13/18 TIME: 13:01 Assessment/Plan VTE Prophylaxis Risk score (from Ns)>0 risk: 5 SCD applied (from Nsg): Yes Lines/Catheters IV Catheter Type (from Nrsg): PORTACATH Urinary Cath still in place: No Assessment/Plan Assessment/Plan Febrile illness- Fox cultures - ID consult- done 1) dehydration - intravenous fluids - monitor clinically, check labs 2) breast cancer - on chemotherapy, continue for now 3) hypothyroidism - continue replacement Result Diagram: 11/13/1842211/13/183 Results 24hrs Laboratory Tests Test 11/13/18 04:23 White Blood Count 2.9 #L Red Blood Count 3.26 L Hemoglobin 10.4 L Hematocrit 30.3 L Mean Corpuscular Volume 92.9 Mean Corpuscular Hemoglobin 31.9 Mean Corpuscular Hemoglobin Concent 34.3 Red Cell Distribution Width 17.0 H Platelet Count 170 Mean Platelet Volume 9.3 Immature Granulocytes % 0.300 Neutrophils % 47.3 Lymphocytes % 36.0 Monocytes % 13.4 H Eosinophils % 2.7 Basophils % 0.3 Nucleated Red Blood Cells % 0.0 Immature Granulocytes # 0.010 Neutrophils # 1.4 L Lymphocytes # 1.1 Monocytes # 0.4 Eosinophils # 0.1 Basophils # 0.0 Nucleated Red Blood Cells # 0.0 Sodium Level 140 Potassium Level 4.2 Chloride Level 105 Carbon Dioxide Level 26 Anion Gap 9 Blood Urea Nitrogen 11 Creatinine 0.75 Est Glomerular Filtrat Rate mL/min > 60 Glucose Level 98 Calcium Level 9.0 Exam/Review of Systems Exam Vitals Vital Signs Date Temp Pulse Resp B/P (MAP) Pulse Ox O2 O2 Flow FiO2 Time Delivery Rate 11/13/18 99.4 78 19 100/57 98 07:32 (71) 11/13/18 Room Air 02:15 Intake and Output 11/12/18 11/12/18 11/13/18 1515:00 23:00 07:00 IntakeIntake Total 640 ml 1225 ml 775 ml OutputOutput Total 1 ml 1 ml BalanceBalance 639 ml 1224 ml 775 ml Results Results 24hrs Laboratory Tests Test 11/13/18 04:23 White Blood Count 2.9 #L Red Blood Count 3.26 L Hemoglobin 10.4 L Hematocrit 30.3 L Mean Corpuscular Volume 92.9 Mean Corpuscular Hemoglobin 31.9 Mean Corpuscular Hemoglobin Concent 34.3 Red Cell Distribution Width 17.0 H Platelet Count 170 Mean Platelet Volume 9.3 Immature Granulocytes % 0.300 Neutrophils % 47.3 Lymphocytes % 36.0 Monocytes % 13.4 H Eosinophils % 2.7 Basophils % 0.3 Nucleated Red Blood Cells % 0.0 Immature Granulocytes # 0.010 Neutrophils # 1.4 L Lymphocytes # 1.1 Monocytes # 0.4 Eosinophils # 0.1 Basophils # 0.0 Nucleated Red Blood Cells # 0.0 Sodium Level 140 Potassium Level 4.2 Chloride Level 105 Carbon Dioxide Level 26 Anion Gap 9 Blood Urea Nitrogen 11 Creatinine 0.75 Est Glomerular Filtrat Rate mL/min > 60 Glucose Level 98 Calcium Level 9.0 Medications Medication Current Medications IV Flush (NS 3 ml) 3 ml PER PROTOCOL IV ; Start 11/07/18 at 22:00 Ondansetron HCl (Zofran Inj) 4 mg Q6H PRN IV NAUSEA/VOMITING Last administered on 11/08/18at 23:04; Admin Dose 4 MG; Start 11/07/18 at 22:00 Morphine Sulfate (morphine) 2 mg Q4H PRN IV .SEVERE PAIN 7-10; Start 11/07/18 at 22:00 Enoxaparin Sodium (Lovenox) 30 mg DAILY SC Last administered on 11/13/18at 09:23; Admin Dose 30 MG; Start 11/08/18 at 09:00 Miscellaneous Information Patients own medicat... BID@ XX ; Start 11/08/18 at 10:00 Levothyroxine Sodium (Synthroid) 150 mcg BEFORE BREAKFAST PO Last administered on 11/13/18at 06:34; Admin Dose 150 MCG; Start 11/09/18 at 07:00 Acetaminophen (Tylenol Tab) 650 mg Q6H PRN PO PAIN LEVEL 6-10 Last administered on 11/13/18 03:16; Admin Dose 650 MG; Start 11/08/18 at 13:00 Miscellaneous Information Patients own medicat... BID@, XX ; Start 11/09/18 at 16:00 Phenyleph/Shark Oil/Min Oil/Petrol (Formulation R Oint) 1 applic BID [place] Last administered on 11/13/18at 09:07; Admin Dose 1 APPLIC; Start 11/09/18 at 14:30 Famotidine (Pepcid) 20 mg Q12 PO Last administered on 11/13/18at 09:07; Admin Dose 20 MG; Start 11/09/18 at 21:00 Potassium Chloride/Dextrose/ Sod Cl 1,000 ml @ 75 mls/hr [id number] IV Last administered on 11/13/18at 05:55; Admin Dose 75 MLS/HR; Start 11/10/18 at 18:00 Diphenoxylate HCl/ Atropine (Lomotil) 1 tab Q6H PRN PO DIARRHEA Last administered on 11/11/18at 22:24; Admin Dose 1 TAB; Start 11/11/18 at 15:00 ZUHAIR HERNANDEZ Nov 13, 2018 13:02
[2018-11-13 15:51] VITALS: BP 101/62; RESP 18
--- NOTE | 2018-11-13 17:16 | CONS ---
Assessment/Plan Assessment/Plan Hospital Course (Demo Recall) assessment/impression - temp overnight, ?possible etiologies include blood stream infection, a telectasis, pneumonia (although CXR did not show clear e/o pneumonia) - s/p diarrhea and dehydration, improved. CT abd/pel did not show acute intra- abdominal pathology. C diff test was negative - immunocompromised state (breast CA, thyroid CA, on chemo) - R breast cancer, diagnosed in 2017 - h/o neoadjuvant chemotherapy followed by R needle-directed partial mastectomy and axillary dissection in 02/2018 - local recurrence of breast cancer - h/o R partial mastectomy with en bloc completion axillary dissection, local adjacent tissue transfer in 05/2018 - h/o R modified radical mastectomy, resection of portion of latissimus dorsi muscle with tumor invasion and resection of the distal posterior medial skin, local skin flaps advancement and closure in 08/2018 - currently on lapatinib and capecitabine - papillary carcinoma of the thyroid - h/o total thyroidectomy in 02/2018 - pain L to the sternum, ?possible costochondritis recommendations - pending results: cultures of blood and urine - if Pt develops another fever episode, will start her on empiric antibiotic(s) management d/w Pt Consultation Date/Type/Reason Admit Date/Time Nov 08, 2018 at 13:40 Date of Consultation: Nov 13, 2018 Type of Consult ID Reason for Consultation fever Requesting Provider: ZUHAIR HERNANDEZ Date/Time of Note DATE: 11/13/18 TIME: 17:00 Hx of Present Illness This is a 42 yo female who was diagnosis with right breast cancer in 2017. She received neoadjuvant chemotherapy followed by R needle-directed partial mastectomy and axillary dissection in 02/2018. During her workup for breast cancer she was diagnosed with papillary carcinoma of the thyroid and underwent total thyroidectomy in 02/2018. Then local breast cancer recurred. She underwent R partial mastectomy with en bloc completion axillary dissection, local adjacent tissue transfer in 05/2018, followed by R modified radical mastectomy, resection of portion of latissimus dorsi muscle with tumor invasion and resection of the distal posterior medial skin, local skin flaps advancement and closure in 08/2018. Most recently Pt has been receiving chemo for lapatinib and capecitabine. Pt was admitted on 11/08/2018 for diarrhea and dehydration. CT abd/pel did not show acute intra-abdominal pathology. C diff test was negative. Overnight (at 2:00 am of 11/13/2018) Pt had temp 100.7F. Pt denies GI , Sx. Pt c/o pain L to the sternum, which prevents Pt from taking deep breath. At pr esent she is afebrile. Cultures of blood and urine were sent. NOLAN Hernandez requested ID consultation on this Pt. Constitutional: no complaints Eyes: no complaints ENT: other (stuffed nose) Respiratory: pain (pain L to the sternum, and Pt is not able to breath deeply) Cardiovascular: no complaints Gastrointestinal: no complaints Genitourinary: no complaints Musculoskeletal: no complaints Skin: no complaints Neurologic: no complaints Past Medical History Medical History: hypothyroid, other (breast CA) Home Meds Reported Medications Acetaminophen* (Tylophen*) 500 Mg Capsule, 650 MG PO Q6H PRN for PAIN LEVEL 6- 10, TAB 09/01/18 Levothyroxine Sodium* (Levoxyl*) 150 Mcg Tablet, 150 MCG PO BEFORE BREAKFAST, #30 TAB 08/31/18 Medications Current Medications IV Flush (NS 3 ml) 3 ml PER PROTOCOL IV ; Start 11/07/18 at 22:00 Ondansetron HCl (Zofran Inj) 4 mg Q6H PRN IV NAUSEA/VOMITING Last administered on 11/08/18at 23:04; Admin Dose 4 MG; Start 11/07/18 at 22:00 Morphine Sulfate (morphine) 2 mg Q4H PRN IV .SEVERE PAIN 7-10; Start 11/07/18 at 22:00 Enoxaparin Sodium (Lovenox) 30 mg DAILY SC Last administered on 11/13/18at 09:23; Admin Dose 30 MG; Start 11/08/18 at 09:00 Miscellaneous Information Patients own medicat... BID@ XX ; Start 11/08/18 at 10:00 Levothyroxine Sodium (Synthroid) 150 mcg BEFORE BREAKFAST PO Last administered on 11/13/18at 06:34; Admin Dose 150 MCG; Start 11/09/18 at 07:00 Acetaminophen (Tylenol Tab) 650 mg Q6H PRN PO PAIN LEVEL 6-10 Last administered on 11/13/18at 16:06; Admin Dose 650 MG; Start 11/08/18 at 13:00 Miscellaneous Information Patients own medicat... BID@10,16 XX ; Start 11/09/18 at 16:00 Phenyleph/Shark Oil/Min Oil/Petrol (Formulation R Oint) 1 applic BID [place] Last administered on 11/13/18at 09:07; Admin Dose 1 APPLIC; Start 11/09/18 at 14:30 Famotidine (Pepcid) 20 mg Q12 PO Last administered on 11/13/18at 09:07; Admin Dose 20 MG; Start 11/09/18 at 21:00 Potassium Chloride/Dextrose/ Sod Cl 1,000 ml @ 75 mls/hr [id number] IV Last administered on 11/13/18at 05:55; Admin Dose 75 MLS/HR; Start 11/10/18 at 18:00 Diphenoxylate HCl/ Atropine (Lomotil) 1 tab Q6H PRN PO DIARRHEA Last administered on 11/11/18at 22:24; Admin Dose 1 TAB; Start 11/11/18 at 15:00 Allergies: Coded Allergies: No Known Allergy (Unverified , 11/07/18) Past Surgical History Past Surgical Hx: other (see HPI) Social History Alcohol Use: none Smoking Status: Never smoker Drug Use: none Exam/Review of Systems Exam Vitals Vital Signs Date Temp Pulse Resp B/P (MAP) Pulse Ox O2 O2 Flow FiO2 Time Delivery Rate 11/13/18 18 101/62 96 15:51 (75) 11/13/18 99.4 78 07:32 11/13/18 Room Air 02:15 Intake and Output 11/12/18 11/12/18 11/13/18 1515:00 23:00 07:00 IntakeIntake Total 640 ml 1225 ml 775 ml OutputOutput Total 1 ml 1 ml BalanceBalance 639 ml 1224 ml 775 ml Constitutional: alert, oriented, well developed Psych: no complaints, nl mood/affect Head: normocephalic, atraumatic Eyes: nl conjunctiva, EOMI, nl lids, nl sclera ENMT: nl external ears & nose, nl nasal mucosa & septum, mucosa pink and moist Neck: supple, non-tender Respiratory: clear to auscultation, normal air movement Cardiovascular: regular rate and rhythm, nl pulses Gastrointestinal: soft, non-tender, bowel sounds; No distended Musculoskeletal: nl extremities to inspection, other (no reproducible tenderness over sternum) Extremities: No edema Neurological: [employer] II-XII intact, nl mental status, nl speech Skin: nl turgor, other (s/p R mastectomy, well healed scar on R breast and neck); No rash or lesions Lymph: nl lymph nodes Results Result Diagram: 11/13/18 0423 11/13/18 0423 Results 24hrs Laboratory Tests Test 11/13/18 04:23 11/13/18 14:45 White Blood Count 2.9 #L Red Blood Count 3.26 L Hemoglobin 10.4 L Hematocrit 30.3 L Mean Corpuscular Volume 92.9 Mean Corpuscular Hemoglobin 31.9 Mean Corpuscular Hemoglobin Concent 34.3 Red Cell Distribution Width 17.0 H Platelet Count 170 Mean Platelet Volume 9.3 Immature Granulocytes % 0.300 Neutrophils % 47.3 Lymphocytes % 36.0 Monocytes % 13.4 H Eosinophils % 2.7 Basophils % 0.3 Nucleated Red Blood Cells % 0.0 Immature Granulocytes # 0.010 Neutrophils # 1.4 L Lymphocytes # 1.1 Monocytes # 0.4 Eosinophils # 0.1 Basophils # 0.0 Nucleated Red Blood Cells # 0.0 Sodium Level 140 Potassium Level 4.2 Chloride Level 105 Carbon Dioxide Level 26 Anion Gap 9 Blood Urea Nitrogen 11 Creatinine 0.75 Est Glomerular Filtrat Rate mL/min > 60 Glucose Level 98 Calcium Level 9.0 Urine Color COLORLESS Urine Clarity CLEAR Urine pH 7.0 Urine Specific [place] 1.008 Urine Ketones NEGATIVE Urine Nitrite NEGATIVE Urine Bilirubin NEGATIVE Urine Urobilinogen NEGATIVE Urine Leukocyte Esterase NEGATIVE Urine Microscopic RBC 0 Urine Microscopic WBC 0 Urine Hemoglobin 1+ H Urine Glucose NEGATIVE Urine Total Protein NEGATIVE Medications Medication Current Medications IV Flush (NS 3 ml) 3 ml PER PROTOCOL IV ; Start 11/07/18 at 22:00 Ondansetron HCl (Zofran Inj) 4 mg Q6H PRN IV NAUSEA/VOMITING Last administered on 11/08/18at 23:04; Admin Dose 4 MG; Start 11/07/18 at 22:00 Morphine Sulfate (morphine) 2 mg Q4H PRN IV .SEVERE PAIN 7-10; Start 11/07/18 at 22:00 Enoxaparin Sodium (Lovenox) 30 mg DAILY SC Last administered on 11/13/18at 09:23; Admin Dose 30 MG; Start 11/08/18 at 09:00 Miscellaneous Information Patients own medicat... BID@ XX ; Start 11/08/18 at 10:00 Levothyroxine Sodium (Synthroid) 150 mcg BEFORE BREAKFAST PO Last administered on 11/13/18 06:34; Admin Dose 150 MCG; Start 11/09/18 at 07:00 Acetaminophen (Tylenol Tab) 650 mg Q6H PRN PO PAIN LEVEL 6-10 Last administered on 11/13/18 16:06; Admin Dose 650 MG; Start 11/08/18 at 13:00 Miscellaneous Information Patients own medicat... BID@ XX ; Start 11/09/18 at 16:00 Phenyleph/Shark Oil/Min Oil/Petrol (Formulation R Oint) 1 applic BID [place] Last administered on 11/13/18 09:07; Admin Dose 1 APPLIC; Start 11/09/18 at 14:30 Famotidine (Pepcid) 20 mg Q12 PO Last administered on 11/13/18at 09:07; Admin Dose 20 MG; Start 11/09/18 at 21:00 Potassium Chloride/Dextrose/ Sod Cl 1,000 ml @ 75 mls/hr [id number] IV Last administered on 11/13/18 05:55; Admin Dose 75 MLS/HR; Start 11/10/18 at 18:00 Diphenoxylate HCl/ Atropine (Lomotil) 1 tab Q6H PRN PO DIARRHEA Last administered on 11/11/18 22:24; Admin Dose 1 TAB; Start 11/11/18 at 15:00 THELMA LAUREN M.D. Nov 13, 2018 17:11
[2018-11-13 20:00] VITALS: BP 100/61; PULSE 82; RESP 18
[2018-11-14 02:00] VITALS: BP 102/58; PULSE 79; RESP 18
[2018-11-14] MEDS: LEVOTHYROXINE 150 MCG TAB PO SCH (07:00)
[2018-11-14 07:32] VITALS: BP 99/56; PULSE 64; RESP 18
[2018-11-14] MEDS ORDERED: LEVOTHYROXINE 137 MCG TAB PO SCH (08:00)
[2018-11-14] MEDS: PE/SHARK OIL/MO/PETROL 30 GM OINT PR SCH ×2 (09:19→20:35)
[2018-11-14] MEDS: FAMOTIDINE 20 MG TAB PO SCH ×2 (09:19→20:20)
[2018-11-14] MEDS: ENOXAPARIN 30 MG/0.3 ML SYG SC SCH (09:34)
--- NOTE | 2018-11-14 13:02 | CONS ---
Assessment/Plan Assessment/Plan Hospital Course (Demo Recall) assessment/impression - temp overnight, ?possible etiologies include blood stream infection, a telectasis, pneumonia (although CXR did not show clear e/o pneumonia) - improved - s/p diarrhea and dehydration, improved. CT abd/pel did not show acute intra- abdominal pathology. C diff test was negative - immunocompromised state (breast CA, thyroid CA, on chemo) - R breast cancer, diagnosed in 2017 - h/o neoadjuvant chemotherapy followed by R needle-directed partial mastectomy and axillary dissection in 02/2018 - local recurrence of breast cancer - h/o R partial mastectomy with en bloc completion axillary dissection, local adjacent tissue transfer in 05/2018 - h/o R modified radical mastectomy, resection of portion of latissimus dorsi muscle with tumor invasion and resection of the distal posterior medial skin, local skin flaps advancement and closure in 08/2018 - currently on lapatinib and capecitabine - papillary carcinoma of the thyroid - h/o total thyroidectomy in 02/2018 - pain L to the sternum, ?possible costochondritis - small enhancing left basal ganglia lesion suspicious for metastasis, grossly unchanged, per MRI/MRA brain recommendations - pending results: blood cx (in process) and urine cx (NGTD) - if Pt develops another fever episode, will start her on empiric antibiotic(s) Management d/w Pt, ASHLI Cross, and with Dr. Mahoney Consultation Date/Type/Reason Admit Date/Time Nov 08, 2018 at 13:40 Initial Consult Date 11/13/18 Requesting Provider: ZUHAIR HERNANDEZ Date/Time of Note DATE: 11/14/18 TIME: 12:57 24 HR Interval Summary Free Text/Dictation Remains afebrile. Had another episode of chills overnight. No dysuria or diarrhea. C. diff was negative. C/o new onset of L thigh pain. C/o persistent ARBOLEDA and asking for Tylenol. Pt states she is awaiting Neurology consult. Exam/Review of Systems Exam Vitals Vital Signs Date Temp Pulse Resp B/P (MAP) Pulse Ox O2 O2 Flow FiO2 Time Delivery Rate 11/14/18 98.5 64 18 99/56 (70) 96 07:32 11/14/18 Room Air 02:00 11/13/18 21 16:30 Intake and Output 11/13/18 11/13/18 11/14/18 1515:00 23:00 07:00 IntakeIntake Total 1000 ml 1225 ml BalanceBalance 1000 ml 1225 ml Constitutional: alert, oriented, well developed Psych: no complaints, nl mood/affect Head: normocephalic, atraumatic Eyes: nl conjunctiva, nl lids, nl sclera ENMT: nl external ears & nose, nl nasal mucosa & septum Neck: supple, non-tender Respiratory: clear to auscultation, normal air movement Cardiovascular: regular rate and rhythm, bruits Gastrointestinal: soft, non-tender Musculoskeletal: nl extremities to inspection, nl gait and stance Extremities: normal pulses; No edema Neurological: nl mental status, other (raspy voice which is uchaned since previous thyroid surgery) Skin: nl turgor, other (L chest portacath c/d/i; s/p R mastectomy, well healed scar on R breast and neck); No rash or lesions Results Result Diagram: 11/14/1844111/14/18 0442 Results 24hrs Laboratory Tests Test 11/13/18 14:45 11/14/18 04:42 Urine Color COLORLESS Urine Clarity CLEAR Urine pH 7.0 Urine Specific [place] 1.008 Urine Ketones NEGATIVE Urine Nitrite NEGATIVE Urine Bilirubin NEGATIVE Urine Urobilinogen NEGATIVE Urine Leukocyte Esterase NEGATIVE Urine Microscopic RBC 0 Urine Microscopic WBC 0 Urine Hemoglobin 1+ H Urine Glucose NEGATIVE Urine Total Protein NEGATIVE White Blood Count 2.8 L Red Blood Count 3.13 L Hemoglobin 10.0 L Hematocrit 30.0 L Mean Corpuscular Volume 95.8 Mean Corpuscular Hemoglobin 31.9 Mean Corpuscular Hemoglobin Concent 33.3 Red Cell Distribution Width 17.5 H Platelet Count 160 Mean Platelet Volume 9.1 Immature Granulocytes % 0.400 Neutrophils % 34.8 L Lymphocytes % 43.4 Monocytes % 16.4 H Eosinophils % 4.6 Basophils % 0.4 Nucleated Red Blood Cells % 0.0 Immature Granulocytes # 0.010 Neutrophils # 1.0 L Lymphocytes # 1.2 Monocytes # 0.5 Eosinophils # 0.1 Basophils # 0.0 Nucleated Red Blood Cells # 0.0 Sodium Level 140 Potassium Level 4.1 Chloride Level 104 Carbon Dioxide Level 28 Anion Gap 8 Blood Urea Nitrogen 9 Creatinine 0.70 Est Glomerular Filtrat Rate mL/min > 60 Glucose Level 99 Calcium Level 9.3 Imaging Imaging MRI brain with MRA 1. No major vessel intracranial arterial occlusion/significant stenosis, intracranial aneurysm or AVM identified. 2. Small enhancing left basal ganglia lesion suspicious for metastasis, grossly unchanged. CXR 11/13/2018: 1. The Port-A-Cath is stable in positioning. 2. Development of minimal discoid atelectasis at the left lung base with the lung sauer and pleural spaces otherwise clear. 3. The cardiovascular silhouette is stable and unremarkable. 3. Absent right breast. Medications Medication Current Medications IV Flush (NS 3 ml) 3 ml PER PROTOCOL IV ; Start 11/07/18 at 22:00 Ondansetron HCl (Zofran Inj) 4 mg Q6H PRN IV NAUSEA/VOMITING Last administered on 11/08/18 23:04; Admin Dose 4 MG; Start 11/07/18 at 22:00 Morphine Sulfate (morphine) 2 mg Q4H PRN IV .SEVERE PAIN 7-10; Start 11/07/18 at 22:00 Enoxaparin Sodium (Lovenox) 30 mg DAILY SC Last administered on 11/14/18 09:34; Admin Dose 30 MG; Start 11/08/18 at 09:00 Miscellaneous Information Patients own medicat... BID@10,16 XX Last administered on 11/14/18 09:34; Admin Dose 1 EA; Start 11/08/18 at 10:00 Acetaminophen (Tylenol Tab) 650 mg Q6H PRN PO PAIN LEVEL 6-10 Last administered on 11/13/18 16:06; Admin Dose 650 MG; Start 11/08/18 at 13:00 Miscellaneous Information Patients own medicat... BID@10,16 XX Last administered on 11/14/18 09:34; Admin Dose 1 EA; Start 11/09/18 at 16:00 Phenyleph/Shark Oil/Min Oil/Petrol (Formulation R Oint) 1 applic BID [place] Last administered on 11/14/18 09:19; Admin Dose 1 APPLIC; Start 11/09/18 at 14:30 Famotidine (Pepcid) 20 mg Q12 PO Last administered on 11/14/18 09:19; Admin Dose 20 MG; Start 11/09/18 at 21:00 Potassium Chloride/Dextrose/ Sod Cl 1,000 ml @ 75 mls/hr [id number] IV Last administered on 4/26/19at 20:17; Admin Dose 75 MLS/HR; Start 11/10/18 at 18:00 Diphenoxylate HCl/ Atropine (Lomotil) 1 tab Q6H PRN PO DIARRHEA Last administered on 11/11/18at 22:24; Admin Dose 1 TAB; Start 11/11/18 at 15:00 Levothyroxine Sodium (Synthroid) 137 mcg DAILY@06 PO ; Start 11/14/18 at 08:00 SHITAL TAPIA NP Nov 14, 2018 13:02
[2018-11-14] MEDS: ACETAMINOPHEN 325 MG TAB PO PRN (13:19)
[2018-11-14] MEDS: D5W-0.45 NACL + KCL 20 MEQ 1,000 ML IV SCH (13:24)
[2018-11-14 13:25] VITALS: BP 107/66; PULSE 66; RESP 18
--- NOTE | 2018-11-14 14:23 | PN ---
Date/Time of Note Date/Time of Note DATE: 11/14/18 TIME: 14:18 Assessment/Plan VTE Prophylaxis Risk score (from Ns)>0 risk: 5 SCD applied (from Nsg): No Lines/Catheters IV Catheter Type (from Nrs): portacath Urinary Cath still in place: No Assessment/Plan Assessment/Plan Febrile illness- Fox cultures - per ID consult 1) dehydration - intravenous fluids - monitor clinically, check labs 2) breast cancer - on chemotherapy, continue for now 3) hypothyroidism - continue replacement Dw Dr Barkley Result Diagram: 11/14/182 11/14/182 Results 24hrs Laboratory Tests Test 11/13/18 14:45 11/14/18 04:42 Urine Color COLORLESS Urine Clarity CLEAR Urine pH 7.0 Urine Specific [place] 1.008 Urine Ketones NEGATIVE Urine Nitrite NEGATIVE Urine Bilirubin NEGATIVE Urine Urobilinogen NEGATIVE Urine Leukocyte Esterase NEGATIVE Urine Microscopic RBC 0 Urine Microscopic WBC 0 Urine Hemoglobin 1+ H Urine Glucose NEGATIVE Urine Total Protein NEGATIVE White Blood Count 2.8 L Red Blood Count 3.13 L Hemoglobin 10.0 L Hematocrit 30.0 L Mean Corpuscular Volume 95.8 Mean Corpuscular Hemoglobin 31.9 Mean Corpuscular Hemoglobin Concent 33.3 Red Cell Distribution Width 17.5 H Platelet Count 160 Mean Platelet Volume 9.1 Immature Granulocytes % 0.400 Neutrophils % 34.8 L Lymphocytes % 43.4 Monocytes % 16.4 H Eosinophils % 4.6 Basophils % 0.4 Nucleated Red Blood Cells % 0.0 Immature Granulocytes # 0.010 Neutrophils # 1.0 L Lymphocytes # 1.2 Monocytes # 0.5 Eosinophils # 0.1 Basophils # 0.0 Nucleated Red Blood Cells # 0.0 Sodium Level 140 Potassium Level 4.1 Chloride Level 104 Carbon Dioxide Level 28 Anion Gap 8 Blood Urea Nitrogen 9 Creatinine 0.70 Est Glomerular Filtrat Rate mL/min > 60 Glucose Level 99 Calcium Level 9.3 Exam/Review of Systems Exam Vitals Vital Signs Date Temp Pulse Resp B/P (MAP) Pulse Ox O2 O2 Flow FiO2 Time Delivery Rate 11/14/18 97.6 66 18 107/66 98 13:25 (80) 11/14/18 Room Air 02:00 11/13/18 21 16:30 Intake and Output 11/13/18 11/13/18 11/14/18 1515:00 23:00 07:00 IntakeIntake Total 1000 ml 1225 ml BalanceBalance 1000 ml 1225 ml Results Results 24hrs Laboratory Tests Test 11/13/18 14:45 11/14/18 04:42 Urine Color COLORLESS Urine Clarity CLEAR Urine pH 7.0 Urine Specific [place] 1.008 Urine Ketones NEGATIVE Urine Nitrite NEGATIVE Urine Bilirubin NEGATIVE Urine Urobilinogen NEGATIVE Urine Leukocyte Esterase NEGATIVE Urine Microscopic RBC 0 Urine Microscopic WBC 0 Urine Hemoglobin 1+ H Urine Glucose NEGATIVE Urine Total Protein NEGATIVE White Blood Count 2.8 L Red Blood Count 3.13 L Hemoglobin 10.0 L Hematocrit 30.0 L Mean Corpuscular Volume 95.8 Mean Corpuscular Hemoglobin 31.9 Mean Corpuscular Hemoglobin Concent 33.3 Red Cell Distribution Width 17.5 H Platelet Count 160 Mean Platelet Volume 9.1 Immature Granulocytes % 0.400 Neutrophils % 34.8 L Lymphocytes % 43.4 Monocytes % 16.4 H Eosinophils % 4.6 Basophils % 0.4 Nucleated Red Blood Cells % 0.0 Immature Granulocytes # 0.010 Neutrophils # 1.0 L Lymphocytes # 1.2 Monocytes # 0.5 Eosinophils # 0.1 Basophils # 0.0 Nucleated Red Blood Cells # 0.0 Sodium Level 140 Potassium Level 4.1 Chloride Level 104 Carbon Dioxide Level 28 Anion Gap 8 Blood Urea Nitrogen 9 Creatinine 0.70 Est Glomerular Filtrat Rate mL/min > 60 Glucose Level 99 Calcium Level 9.3 Medications Medication Current Medications IV Flush (NS 3 ml) 3 ml PER PROTOCOL IV ; Start 11/07/18 at 22:00 Ondansetron HCl (Zofran Inj) 4 mg Q6H PRN IV NAUSEA/VOMITING Last administered on 11/08/18at 23:04; Admin Dose 4 MG; Start 11/07/18 at 22:00 Morphine Sulfate (morphine) 2 mg Q4H PRN IV .SEVERE PAIN 7-10; Start 11/07/18 at 22:00 Enoxaparin Sodium (Lovenox) 30 mg DAILY SC Last administered on 11/14/18at 09:34; Admin Dose 30 MG; Start 11/08/18 at 09:00 Miscellaneous Information Patients own medicat... BID@10,16 XX Last administered on 11/14/18at 09:34; Admin Dose 1 EA; Start 11/08/18 at 10:00 Acetaminophen (Tylenol Tab) 650 mg Q6H PRN PO PAIN LEVEL 6-10 Last administered on 11/14/18 13:19; Admin Dose 650 MG; Start 11/08/18 at 13:00 Miscellaneous Information Patients own medicat... BID@10,16 XX Last administered on 11/14/18 09:34; Admin Dose 1 EA; Start 11/09/18 at 16:00 Phenyleph/Shark Oil/Min Oil/Petrol (Formulation R Oint) 1 applic BID [place] Last administered on 11/14/18 09:19; Admin Dose 1 APPLIC; Start 11/09/18 at 14:30 Famotidine (Pepcid) 20 mg Q12 PO Last administered on 11/14/18 09:19; Admin Dose 20 MG; Start 11/09/18 at 21:00 Potassium Chloride/Dextrose/ Sod Cl 1,000 ml @ 75 mls/hr [id number] IV Last administered on 11/14/18 13:24; Admin Dose 75 MLS/HR; Start 11/10/18 at 18:00 Diphenoxylate HCl/ Atropine (Lomotil) 1 tab Q6H PRN PO DIARRHEA Last administered on 11/11/18 22:24; Admin Dose 1 TAB; Start 11/11/18 at 15:00 Levothyroxine Sodium (Synthroid) 137 mcg DAILY@06 PO ; Start 11/14/18 at 08:00 ZUHAIR HERNANDEZ Nov 14, 2018 14:23
[2018-11-14 19:58] VITALS: BP 113/69; PULSE 65; RESP 18
[2018-11-14] MEDS ORDERED: HEPARIN (100 UNITS/ML) 5 ML SYG CATHETER ONE (20:00)
[2018-11-15] MEDS ORDERED: LEVOTHYROXINE 137 MCG TAB PO SCH (06:00)
== END 2018-11-14 21:30 | disposition home or self-care (01) | DRG 393 ==
LOC: E/R 17:15 → TEL 21:16 → EDBEDREQ 21:26 → OBSVTOIN 11-08 13:40 → MS1 11-11 23:44
PROVIDERS: ADMIT Internal Medicine; ATTEND Internal Medicine
DX: K52.1 Toxic gastroenteritis and colitis (principal); E43 Unspecified severe protein-calorie malnutrition; E86.0 Dehydration; E87.6 Hypokalemia; T45.1X5A Adverse effect of antineoplastic and immunosuppressive drugs, initial encounter; Z68.20 Body mass index [BMI] 20.0-20.9, adult; C50.911 Malignant neoplasm of unspecified site of right female breast; Z79.899 Other long term (current) drug therapy; E03.9 Hypothyroidism, unspecified; R07.89 Other chest pain; E83.42 Hypomagnesemia; R50.9 Fever, unspecified; Z85.850 Personal history of malignant neoplasm of thyroid; R51 Headache; M79.652 Pain in left thigh
CPT/HCPCS: 36415; 70545; 71045; 74176; 80048; 80053; 81001; 83036; 83690; 83735; 84100; 84484; 84703; 85025; 85610; 87075; 87086; 93005; 96374; 96375; G0378; J1170; J1642; J1650; J2270; J2405; J3475; J3480; J7030; J7040; J7120

== ENCOUNTER 2019-03-15 12:57 | Emergency (ER) | payer OTHER ==
[~2019-03-15] VITALS: Wt 57.2 kg
[~2019-03-15 12:57] MED LIST changes: +CAPE500T13 PO; +HYDR-3980 PO; +LEVO137T3 PO; +NALO4SPR NS; +TYKE250 PO
[2019-03-15] MEDS ORDERED: SOD CHLORIDE 0.9% 1,000 ML IV STA (14:46)
[2019-03-15 18:33] VITALS: BP 94/62; PULSE 63; RESP 16
== END 2019-03-15 18:25 | disposition home or self-care (01) ==
LOC: E/R 12:57
DX: M54.6 Pain in thoracic spine (principal); C50.919 Malignant neoplasm of unspecified site of unspecified female breast
CPT/HCPCS: 36415; 71045; 80053; 81001; 81003; 81025; 83690; 85025; 93005; J7030; Z7502